=== PATIENT | female | born 1985 | race Caucasian/White ===

== ENCOUNTER 2016-09-30 15:16 | Emergency (ER) | payer OTHER ==
[2016-09-30 15:29] VITALS: BP 109/70
[2016-09-30] MEDS ORDERED: Ketorolac INJ* 60 MG/2 ML VIAL IM ONE (16:24)
[2016-09-30] MEDS ORDERED: Gabapentin CAP(*) 100 MG PO ONE (16:24)
--- NOTE | 2016-09-30 16:39 | RAD ---
Indication: Fall, back pain. 6 views of lumbar spine are reviewed. There is a transitional vertebra probably representing partial lumbarization of S1. There is fusion posteriorly of L5 and S1 with intervertebral disc spacer noted at L5-S1. No evidence of spondylolisthesis is noted. There is straightening of the normal lordosis. No fracture is noted. The pedicles appear intact. IMPRESSION: Partial lumbarization of S1 with fusion of L5-S1 with transpedicular screws. No definite fracture is identified.
--- NOTE | 2016-09-30 17:41 | ED ---
Back Pain - HPI Summary HPI Summary: Patient presents with approximately 2 weeks of back pain that began after a fall. She has a history of L5-S1 fusion, so she has tried to manage her discomfort with the methods she had used after surgery, like heat, ice, ibuprofen, Tylenol and Vicodin without relief. Her pain is in the low back with intermittent radiation down her left leg. She denies incontinence of urine or stool, no N/T or inability to ambulate. - History of Current Complaint Chief Complaint: EDBackInjuryPain Stated Complaint: LOWER AND UPPER BACK PAIN Time Seen by Provider: 09/30/16 15:49 Hx Obtained From: Patient Hx Last Menstrual Period: 11/12/15 Onset/Duration: Gradual Onset, Lasting Weeks, Still Present Onset/Duration: Started Weeks Ago, Traumatic - fall, Still Present Timing: Constant Back Pain Location: Is Discrete @ - bilateral SI joints Severity Initially: Severe Severity Currently: Severe Pain Intensity: 10 Character: Sharp, Aching Aggravating Symptom(s): Movement Alleviating Symptom(s): Nothing Associated Signs And Symptoms: Positive: Pain with Weight Bearing Related History: Previous Back Injury - Allergies/Home Medications Allergies/Adverse Reactions: Allergies Allergy/AdvReac Type Severity Reaction Status Date / Time UNKNOW MED FOR KIDNEY Allergy Severe ELAVATED Uncoded 08/11/15 13:35 INFECTION BP , SOB PMH/Surg Hx/FS Hx/Imm Hx Endocrine/Hematology History: Denies: Hx Diabetes, Hx Thyroid Disease Cardiovascular History: Denies: Hx Hypertension Respiratory History: Reports: Hx Asthma Denies: Hx Chronic Obstructive Pulmonary Disease (COPD) GI History: Denies: Hx Ulcer History: Reports: Hx Kidney Infection - 6 MONTHS AGO Musculoskeletal History: Reports: Hx Back Problems - [facility] y[facility] ago, fusion L5-S1 08/02/12 Sensory History: Denies: Hx Contacts or Glasses, Hx Hearing Aid Opthamlomology History: Denies: Hx Contacts or Glasses Neurological History: Reports: Hx Migraine - 2X/MONTH Psychiatric History: Reports: Hx Anxiety - Cancer History Cancer Type, Location and Year: cervical - Surgical History Surgery Procedure, Year, and Place: D&C [place], right inguinal hernia 07/2014. TUBAL LIGATION [facility] [place]. SPINAL FUSION L5/S1 2011 [place]. [place] BX 2007 [place] Hx Anesthesia Reactions: No Infectious Disease History: No Infectious Disease History: Denies: Hx Hepatitis, Hx Human Immunodeficiency Virus (HIV), History Other Infectious Disease, Traveled Outside the [place] in Last 30 Days - Family History Known Family History: Positive: None - Social History Occupation: Employed Full-time Lives: With Family Alcohol Use: Occasionally Substance Use Type: Reports: Marijuana Substance Use Comment - Amount & Last Used: DAILY Smoking Status (MU): Never Smoked Tobacco Have You Smoked in the Last Year: Yes Review of Systems Negative: no symptoms reported, incontinence Positive: Arthralgia, Myalgia. Negative: Edema Negative: Bruising Negative: Weakness, Paresthesia, Numbness All Other Systems Reviewed And Are Negative: Yes Physical Exam Triage Information Reviewed: Yes Vital Signs On Initial Exam: Initial Vitals Temp Pulse Resp BP Pulse Ox 98.6 F 91 20 109/70 99 09/30/16 15:25 09/30/16 15:25 09/30/16 15:25 09/30/16 15:25 09/30/16 15:25 Vital Signs Reviewed: Yes Appearance: Positive: Well-Appearing, Well-Nourished, Pain Distress Skin: Positive: Warm, Skin Color Reflects Adequate Perfusion, Dry, Soft Head/Face: Positive: Normal Head/Face Inspection Eyes: Positive: EOMI, MARINO, Conjunctiva Clear ENT: Positive: Hearing grossly normal Neck: Positive: Supple, Nontender Respiratory/Lung Sounds: Positive: Breath Sounds Present Cardiovascular: Positive: RRR Abdomen Description: Positive: Nontender, Soft Musculoskeletal: Positive: Limited @ - +SLR bilaterally, Pain @ - TTP bilateral SI joints; non-tender left buttock or posterior thigh Neurological: Positive: Sensory/Motor Intact, Alert, Oriented to Person Place, Time, Reflexes Intact, NV Bundle Intact Distally, Normal Gait Psychiatric: Positive: Affect/Mood Appropriate AVPU Assessment: Alert Diagnostics - Vital Signs Vital Signs Temp Pulse Resp BP Pulse Ox 09/30/16 15:25 98.6 F 91 20 109/70 99 - Laboratory Lab Statement: Any lab studies that have been ordered have been reviewed, and results considered in the medical decision making process. - Radiology No standard instances Xray Interpretation: No Acute Changes Radiology Interpretation Completed By: Radiologist Back Pain Course/Dx - Diagnoses Differential Diagnosis/HQI/PQRI: Positive: Aneurysm, Cauda Equina Syndrome, Herniated Disc, Osteoporosis, Septic Arthritis, Strain, Sprain Provider Diagnoses: Acute exacerbation of chronic low back pain Discharge - Discharge Plan Condition: Stable Disposition: HOME Prescriptions: Gabapentin CAP(*) [Neurontin 100 mg CAP(*)] 100 mg PO ONCE #20 cap Patient Education Materials: Low Back Strain (ED) Referrals: Mica Purdy MD [Primary Care Provider] - Additional Instructions: Please use the medication provided as prescribed. Call your PCP tomorrow to discuss pain management options and for a refill of your regular medication. Rest, use ice or heat and begin taking 800mg of ibuprofen three times daily with meals tomorrow evening, due to your Toradol injection today.
== END 2016-09-30 17:10 | disposition home or self-care (01) ==
LOC: ED 15:16
DX: M54.5 Low back pain (principal); G89.29 Other chronic pain
CPT/HCPCS: 72110; 96372; 99282; A9270-GY; J1885

== ENCOUNTER 2016-12-08 08:19 | Emergency (ER) | payer SELFPAY ==
[2016-12-08 08:37] VITALS: BP 106/73
[2016-12-08] MEDS ORDERED: BSS OPTH.SOL* BTL ONE (08:39)
[2016-12-08] MEDS ORDERED: Fluorescein Sodium TOPICAL* 1 MG TEST ONE (08:39)
[2016-12-08] MEDS ORDERED: Tetracaine 0.5% OPTH.SOL 4 ML* 1 DROP BTL RIGHT EYE ONE (08:41)
[2016-12-08] MEDS ORDERED: Fluorescein Sodium TOPICAL* 1 MG TEST OPHTHALMIC ONE (08:41)
[2016-12-08] MEDS ORDERED: Tetracaine 0.5% OPTH.SOL 15ML* BTL ONE (08:43)
[2016-12-08] MEDS ORDERED: Tetan/Diph/Pertus SYR(Tdap)* 0.5 ML SYR(BOOSTRIX) use SYR IM ONE (08:51)
[2016-12-08] MEDS ORDERED: Polymyx/Trimethoprim OPTH* 10 ML BTL RIGHT EYE ONE (08:52)
--- NOTE | 2016-12-08 08:53 | UC ---
Jasen Cheng SooYoung, scribed for Diane Valentin MD on 12/08/16 at 0836 . Eye Complaint HPI - HPI Summary HPI Summary: A 31 y/o F presents to [facility] [place] with c/o R eye pain onset two days ago. Associated sx : eye tearing. Mild photophobia. Burning pain. Pt was cutting wood two days ago and a "chunk of wood" flew into her R eye. She flushed it with water and Visine, but still feels that something is in her eye. She's unsure if it's a foreign body or if she scratched her eye. Pt wears glasses, no contacts.. She states feeling healthy otherwise. Unsure of her last tetanus. Denies daily medications. PSHx: Spinal fusion. Non-smoker, occasional drinker, occasional marijuana use. Patients medication reviewed this visit. - History of Current Complaint Chief Complaint: UCEye Stated Complaint: EYE COMPLAINT Time Seen by Provider: 12/08/16 08:32 Hx Obtained From: Patient Hx Last Menstrual Period: 12/01/16 Onset/Duration: Sudden Onset, Lasting Days - onset 2 days ago, Still Present Timing: Constant Severity Currently: Mild Pain Intensity: 3 Pain Scale Used: 0-10 Numeric Location of Injury: Globe Character: Foreign Body Sensation Aggravating Factor(s): Light, Blinking Alleviating Factor(s): Eye Drops - Visine Associated Signs And Symptoms: Positive: Drainage (Clear) - Allergies/Home Medications Allergies/Adverse Reactions: Allergies Allergy/AdvReac Type Severity Reaction Status Date / Time UNKNOW MED FOR KIDNEY AdvReac Severe ELAVATED BP Uncoded 12/08/16 08:33 INFECTION Home Medications: Home Medications NK [No Home Medications Reported] 12/08/16 [History Confirmed 12/08/16] PMH/Surg Hx/FS Hx/Imm Hx Previously Healthy: No Endocrine History Of: Denies: Diabetes, Thyroid Disease, Hyperthyroidism, Hypothyroidism, Dyslipidemia Cardiovascular History Of: Denies: Cardiac Disorders, Hypertension, Pacemaker/ICD, Myocardial Infarction , Congestive Heart Failure, Atrial Fibrillation, Deep Vein Thrombosis, Bleeding Disorders Respiratory History Of: Reports: Asthma, Bronchitis - 3 WEEKS AGO Denies: COPD GI/ History Of: Denies: Gastroesophageal Reflux, Ulcer, Gastrointestinal Bleed, Gall Bladder Disease, Kidney Stones, Diverticulitis, Renal Disease, Urosepsis Neurological History Of: Reports: Migraine - 2X/MONTH Denies: TIA, CVA, Dementia, Seizures Psychological History Of: Reports: Anxiety Denies: Depression, Bipolar Disorder, Schizophrenia, Post Traumatic Stress Disorder Cancer History Of: Denies: Lung Cancer, Colorectal Cancer, Breast Cancer, Prostate Cancer, Cervical Cancer Other History Of: Negative For: HIV, Hepatitis B, Hepatitis C, Anticoagulant Therapy - Surgical History Surgical History: Yes Surgery Procedure, Year, and Place: D&C [place], right inguinal hernia 07/2014. TUBAL LIGATION [facility] [place]. SPINAL FUSION L5/S1 2011 [place]. [place] 2007 [place] - Family History Known Family History: Positive: Cardiac Disease, Hypertension Negative: Diabetes - Social History Occupation: Employed Full-time Lives: Alone Alcohol Use: Occasionally Substance Use Type: Marijuana Substance Use Comment - Amount & Last Used: DAILY Smoking Status (MU): Never Smoked Tobacco Have You Smoked in the Last Year: Yes - Immunization History Most Recent Influenza Vaccination: no Review of Systems Constitutional: Negative Skin: Negative Eyes: Drainage - clear, Photophobia - mild, Other - R eye pain ENT: Negative Respiratory: Negative Cardiovascular: Negative Gastrointestinal: Negative Genitourinary: Negative Motor: Negative Neurovascular: Negative Musculoskeletal: Negative Neurological: Negative Psychological: Negative All Other Systems Reviewed And Are Negative: Yes Physical Exam Triage Information Reviewed: Yes Vital Signs: Initial Vital Signs Temp 98.9 F 12/08/16 08:23 Pulse 73 12/08/16 08:23 Resp 14 12/08/16 08:23 BP 106/73 12/08/16 08:23 Pulse Ox 98 12/08/16 08:23 Vital Signs Reviewed: Yes Eyes: Positive: Other: - right eye - injected MARINO with mild photophobia EOM intact and full fluorescene: pt with small area uptake lateral aspect of iris right eye no foreign body lids everted without f/b ENT: Positive: Hearing grossly normal Neck exam: Normal Respiratory Exam: Normal Respiratory: Positive: Chest non-tender, Lungs clear, Normal breath sounds Cardiovascular Exam: Normal Cardiovascular: Positive: RRR, No Murmur Abdomen Description: Positive: Nontender, No Organomegaly, Soft Bowel Sounds: Positive: Present Musculoskeletal Exam: Normal Neurological Exam: Normal Psychological Exam: Normal Skin Exam: Normal Eye Complaint Course/Dx - Course Course Of Treatment: pt with corneal abraison with fluorescene uptake right eye. will start abx. will update tdap - Differential Dx/Diagnosis Provider Diagnoses: corneal abrasion Discharge - Discharge Plan Condition: Stable Disposition: HOME Patient Education Materials: Diphtheria/Pertussis/Tetanus Vaccine (By injection ), Corneal Abrasion (ED) Referrals: Mica Purdy MD [Primary Care Provider] - Additional Instructions: You received a tetanus booster today- your arm will likely be achy tomorrow - this is normal. Okay to alternate ibuprofen (advil, motrin) and tylenol every 3 hours as needed Apply antibiotic to your right eye - 1 drop, 3 times a day for 5 days Avoid rubbing and touching your eye You may find wearing sunglasses helps with light sensitivity Contact your doctor to schedule a follow-up appointment. Contact your doctor or return with questions or concerns The documentation as recorded by the Jasen krishnamurthy SooYoung accurately reflects the service I personally performed and the decisions made by , Diane Valentin MD.
== END 2016-12-08 09:10 | disposition home or self-care (01) ==
LOC: UCEAST 08:19
DX: S05.01XA Injury of conjunctiva and corneal abrasion without foreign body, right eye, initial encounter (principal); X58.XXXA Exposure to other specified factors, initial encounter; Y93.89 Activity, other specified; Y92.9 Unspecified place or not applicable; Z23 Encounter for immunization; J45.909 Unspecified asthma, uncomplicated; G43.909 Migraine, unspecified, not intractable, without status migrainosus; F41.9 Anxiety disorder, unspecified; F12.90 Cannabis use, unspecified, uncomplicated
CPT/HCPCS: 90471; 90715; 99212; A9270-GY; G0463

== ENCOUNTER 2017-04-29 07:48 | Emergency (ER) | payer SELFPAY ==
[2017-04-29 08:21] VITALS: BP 95/68
--- NOTE | 2017-04-29 09:03 | RAD ---
Indication: Pain and swelling the LEFT lower leg post fall. Comparison: No relevant prior exams available on the [facility] [place] PACS for comparison. Technique: AP and lateral views LEFT lower leg. REPORT AND IMPRESSION: Mild anterior soft tissue swelling at the level of the mid diaphysis. Negative for fracture or malalignment.
--- NOTE | 2017-04-29 09:14 | UC ---
Joshua Cheng Rebecca, scribed for Tiffany Nazario MD on 04/29/17 at 0827 . Lower Extremity/Ankle HPI - HPI Summary HPI Summary: Pt is a 32 y/o F who presents to [facility] c/o LLE pain. Last night the pt tripped over a brick that was sticking out of a walkway, then her "whole leg twisted" and she fell, scraping her leg on the bricks. Pt states that pain, bruising and swelling began immediately after the fall. Pain is from below the knee and down , worst on the caro, is currently moderate, ranked 6/10 and characterized as throbbing. Sx aggravated by the vibrations from her truck, alleviated by ice. Denies hip, knee and calf pain. 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 - History of Current Complaint Chief Complaint: UCLowerExtremity Stated Complaint: LEG INJURY Time Seen by Provider: 04/29/17 08:17 Hx Obtained From: Patient Hx Last Menstrual Period: 04/13/17 Onset/Duration: Lasting Days - Yesterday, Still Present Severity Currently: Moderate Pain Intensity: 6 Pain Scale Used: 0-10 Numeric Aggravating Factor(s): Other - Vibrations of her truck Alleviating Factor(s): Ice Able to Bear Weight: Yes - Allergies/Home Medications Allergies/Adverse Reactions: Allergies Allergy/AdvReac Type Severity Reaction Status Date / Time UNKNOW MED FOR KIDNEY AdvReac Severe ELAVATED BP Uncoded 04/29/17 08:16 INFECTION PMH/Surg Hx/FS Hx/Imm Hx - Additional Past Medical History Additional PMH: NEGATIVE PMHx: DM, HTN, COPD Respiratory History: Asthma, Other Other Respiratory History: Seasonal allergies Neurological History: Other Other Neurological History: Nerve damage on the L side Other History Of: Negative For: HIV, Hepatitis B, Hepatitis C, Anticoagulant Therapy - Surgical History Surgical History: Yes Surgery Procedure, Year, and Place: D&C [place]. right inguinal hernia 2014. TUBAL LIGATION [facility] [place] 2008. SPINAL FUSION L5/S1 2011 [place] - Family History Known Family History: Positive: Cardiac Disease, Hypertension, Diabetes, Respiratory Disease - COPD, Other - CA - mouth, throat and lung - Social History Occupation: Employed Full-time Lives: With Family Alcohol Use: Occasionally Substance Use Type: None Substance Use Comment - Amount & Last Used: DAILY Smoking Status (MU): Never Smoked Tobacco Have You Smoked in the Last Year: Yes - Immunization History Most Recent Influenza Vaccination: no Review of Systems Constitutional: Negative Skin: Bruising, Other - LLE caro swelling Eyes: Negative ENT: Negative Respiratory: Negative Cardiovascular: Negative Gastrointestinal: Negative Genitourinary: Negative Motor: Negative Neurovascular: Negative Musculoskeletal: Other: - LLE pain from below the knee and down; NEGATIVE: hip, knee and calf pain Neurological: Other - decreased sensation left leg post L5-S1 fusion and preceding injury Psychological: Negative All Other Systems Reviewed And Are Negative: Yes Physical Exam Triage Information Reviewed: Yes Appearance: Well-Appearing, Pain Distress - mild Vital Signs: Initial Vital Signs Temp 97.8 F 04/29/17 08:16 Pulse 80 04/29/17 08:16 Resp 16 04/29/17 08:16 BP 95/68 04/29/17 08:16 Pulse Ox 99 04/29/17 08:16 ENT: Positive: Normal ENT inspection Neck exam: Normal Respiratory: Positive: Lungs clear, Normal breath sounds Cardiovascular: Positive: RRR, No Murmur Musculoskeletal Exam: Other - antalgic gait left lower leg with 14 x 12 cm hematoma over mid tibial area Left knee without swelling, non-tender patell, full rom. Musculoskeletal: Positive: Other: - full rom in left ankle. Neurological Exam: Normal Neurological: Positive: Alert, Muscle Tone Normal Psychological Exam: Normal Skin Exam: Other - hematoma left leg as above Diagnostics - Radiology L Lower Leg XR Xray Interpretation: No Acute Changes - Mild anterior soft tissue swelling at the level of the mid diaphysis. Negative for fracture or malalignment. Radiology Interpretation Completed By: ED Physician - No radiographic findings consistent with fracture., Radiologist Re-Evaluation - Re-Evaluation First Eval Re-Evaluation Time: 09:09 Comment: Discussed radiologist interpretation of XR. Lower Extremity Course/Dx - Course Course Of Treatment: ED physician interpreattion of L lower leg XR is that there is no evidence for fracture. Pt medications reviewed this visit. - Differential Dx/Diagnosis Differential Diagnosis/HQI/PQRI: Compartment Syndrome, Contusion, Fracture ( Closed) Provider Diagnoses: contusion/hematoma left leg. Discharge - Discharge Plan Condition: Stable Disposition: HOME Patient Education Materials: Contusion in Adults (ED) Referrals: Mica Purdy MD [Primary Care Provider] - Additional Instructions: You have a hematoma and a bone bruise. This can be painful for 3 to 4 weeks, but there is not a fracture in the bone. Continue regular use of ice to control swelling and pain, and you can use ibuprofen as needed for control of pain. Anticipate that the bruising will track to the foot over the next week. Follow up if there is increased pain and swelling. The documentation as recorded by the Joshua krishnamurthy Rebecca accurately reflects the service I personally performed and the decisions made by , Tiffany Nazario MD.
== END 2017-04-29 09:25 | disposition home or self-care (01) ==
LOC: UCEAST 07:48
DX: S80.12XA Contusion of left lower leg, initial encounter (principal); W01.0XXA Fall on same level from slipping, tripping and stumbling without subsequent striking against object, initial encounter; Y92.9 Unspecified place or not applicable; J45.909 Unspecified asthma, uncomplicated
CPT/HCPCS: 99211; G0463

== ENCOUNTER 2017-06-23 13:57 | Emergency (ER) | payer SELFPAY ==
[2017-06-23 14:21] VITALS: BP 107/66
[2017-06-23] MEDS ORDERED: Al Hydrox/Mg Hydrox/Simet LIQ* 30 ML UDC PO ONE (14:47)
[2017-06-23] MEDS ORDERED: Acetaminophen TAB* 325 MG PO ONE (14:51)
--- NOTE | 2017-06-23 14:52 | UC ---
Abdominal Pain Female HPI - HPI Summary HPI Summary: 32 year old female with no significant pmhx here with complaint of sore throat X4 days along with abdominal painX2 days. Reports she started vomiting yesterday with generalized abdominal pain along - History of Current Complaint Chief Complaint: UCAbdominalPain Stated Complaint: VOMITING SORE THROAT CHILLS PAIN ON SIDE Time Seen by Provider: 06/23/17 14:37 Hx Last Menstrual Period: 06/04/17 Onset/Duration: Gradual Onset Severity Initially: Mild Location: Discrete At: RLQ Radiates to: Other - right upper quadrant Character: Aching Aggravating Factor(s): Movement Alleviating Factor(s): Nothing Associated Signs and Symptoms: Positive: Fever, Decreased Appetite, Nausea, Vomiting. Negative: Cough, Blood in Stool, Urinary Symptoms, Vaginal Bleeding, Vaginal Discharge Allergies/Adverse Reactions: Allergies Allergy/AdvReac Type Severity Reaction Status Date / Time UNKNOW MED FOR KIDNEY AdvReac Severe ELAVATED BP Uncoded 04/29/17 08:16 INFECTION PMH/Surg Hx/FS Hx/Imm Hx Other History Of: Negative For: HIV, Hepatitis B, Hepatitis C, Anticoagulant Therapy - Surgical History Surgical History: Yes Surgery Procedure, Year, and Place: D&C [place]. right inguinal hernia 2014. TUBAL LIGATION [facility] [place] 2008. SPINAL FUSION L5/S1 2011 [place] - Family History Known Family History: Positive: None, Cardiac Disease, Hypertension, Diabetes, Respiratory Disease - COPD, Other - [place] - mouth, throat and lung - Social History Alcohol Use: Occasionally Substance Use Type: None Substance Use Comment - Amount & Last Used: DAILY Smoking Status (MU): Former Smoker Have You Smoked in the Last Year: Yes - Immunization History Most Recent Influenza Vaccination: no Review of Systems Constitutional: Fever, Chills Gastrointestinal: Abdominal Pain, Vomiting, Nausea Genitourinary: Negative All Other Systems Reviewed And Are Negative: Yes Physical Exam Triage Information Reviewed: Yes Appearance: Well-Appearing, No Pain Distress Vital Signs: Initial Vital Signs Temp 36.8 C 06/23/17 14:16 Pulse 94 06/23/17 14:16 Resp 16 06/23/17 14:16 BP 107/66 06/23/17 14:16 Pulse Ox 100 06/23/17 14:16 Respiratory: Positive: Chest non-tender, Lungs clear, Normal breath sounds, No respiratory distress Cardiovascular: Positive: RRR, No Murmur Abdomen Description: Positive: Guarding - RLQ tenderness with guarding Abd Pain Female Course/Dx - Course Course Of Treatment: 32 year old female with signs and symptoms c/w appendicitis. Since patient's cr can not be obtained here, will transfer to the ED for CTAP. Urine here is negative. She had tubal ligation, so concern for ectopic is unlikelly. - Differential Dx/Diagnosis Differential Diagnosis: Appendicitis, Ovarian Cyst, Urinary Tract Infection Provider Diagnoses: RLQ abdominal pain Discharge - Discharge Plan Condition: Good Disposition: HOME Referrals: No Primary Care Phys,NOPCP [Primary Care Provider] - Additional Instructions: Go to the ER immediately
== END 2017-06-23 15:10 | disposition home or self-care (01) ==
LOC: UCEAST 13:57
DX: R10.31 Right lower quadrant pain (principal); Z87.891 Personal history of nicotine dependence; Z88.8 Allergy status to other drugs, medicaments and biological substances
CPT/HCPCS: 81003; 87077; 87086; 87186; 99212; A9270-GY; G0463

== ENCOUNTER 2017-06-23 15:31 | Emergency (ER) | payer SELFPAY ==
[2017-06-23] MEDS ORDERED: Ondansetron INJ* 2 MG/ML VIAL IV ONE (16:13)
[2017-06-23] MEDS ORDERED: Morphine INJ* 4 MG/ML 1 ML CARPUJECT IV ONE (16:13)
[2017-06-23] MEDS: NS 0.9% 1000 ML* 2,000 ML IV ONE (16:36)
[2017-06-23 16:48] LABS: Hematocrit 40 % (35-47); Hemoglobin 13.5 g/dl (12.0-16.0); Mean Corpuscular HGB Conc 34 g/dl (31-36); Mean Corpuscular Hemoglobin 29 pg (27-31); Mean Corpuscular Volume 87 fL (80-97); Mean Platelet Volume 9 um3 (7.4-10.4); Red Blood Count 4.63 10^6/ul (4.0-5.4); Red Cell Distribution Width 13 % (10.5-15); White Blood Count 8.6 10^3/ul (3.5-10.8)
[2017-06-23 17:04] LABS: ALT 9 U/L (7-52); AST 12 U/L (13-39); Albumin 4.3 g/dL (3.2-5.2); Alkaline Phosphatase 42 U/L (34-104); Anion Gap 5 mmol/L (2-11); BUN/Creatinine Ratio 15.9 (8-20); Blood Urea Nitrogen 14 mg/dL (6-24); C Reactive Protein 1.82 mg/L (< 5.00); CO2 Carbon Dioxide 27 mmol/L (22-32); Calcium 9.7 mg/dL (8.6-10.3); Chloride 104 mmol/L (101-111); EGFR Non-African American 75.4 (>60); Globulin 2.8 g/dL (2-4); Glucose 85 mg/dL (70-100); Lipase 13 U/L (11.0-82.0); Potassium 3.8 mmol/L (3.5-5.0); Sodium 136 mmol/L (133-145); Total Protein 7.1 g/dL (6.4-8.9)
[2017-06-23] MEDS ORDERED: Iohexol 300* (CONTRAST) 10 ML SDV IV ONE (17:08)
--- NOTE | 2017-06-23 18:07 | RAD ---
HISTORY: Right lower quadrant pain COMPARISONS: None TECHNIQUE: Multiple transverse and longitudinal ultrasound images were obtained of the right lower quadrant using grayscale and color Doppler imaging. FINDINGS: The appendix is not visualized. There is no free or loculated fluid within the right lower quadrant. IMPRESSION: THE APPENDIX IS NOT VISUALIZED. THERE IS NO FREE OR LOCULATED FLUID WITHIN THE RIGHT LOWER QUADRANT.
--- NOTE | 2017-06-23 18:09 | RAD ---
HISTORY: Right lower quadrant pain COMPARISONS: January 19, 2012 TECHNIQUE: Multiple transverse and longitudinal ultrasound images were obtained of the pelvis using grayscale, color Doppler, and spectral Doppler imaging using the endovaginal transducer. FINDINGS: UTERUS: The uterus measures 7.7 x 4.5 x 5.1 cm. The uterus is normal in shape, size, contour, and echotexture. ENDOMETRIUM: The endometrial stripe is smooth. The endometrium measures 1 cm in thickness. CUL-DE-SAC: There is no free fluid within the cul-de-sac. RIGHT OVARY: The right ovary measures 4.2 x 2.2 x 3.2 cm. There is an involuting cyst of the right ovary measuring 1.8 x 1.8 x 2 cm in size. There is a small amount of fluid adjacent to the right ovary. This may be physiologic within a reproductive age female. Normal arterial and venous waveforms are identifiable within the ovary on spectral Doppler imaging. LEFT OVARY: The left ovary measures 3.2 x 1.7 x 1.8 cm. Multiple follicles are noted. Normal arterial and venous waveforms are identifiable within the ovary on spectral Doppler imaging. BLADDER: The bladder is not well visualized. OTHER: None IMPRESSION: INVOLUTING CYST OF THE RIGHT OVARY. NO SONOGRAPHIC FEATURES OF TORSION. PLEASE NOTE THAT PARTIAL OR INTERMITTENT TORSION MAY BE SONOGRAPHICALLY NORMAL.
--- NOTE | 2017-06-23 18:46 | RAD ---
CLINICAL HISTORY: Right lower quadrant pain COMPARISON: Ultrasound dated June 23, 2017, CT dated February 12, 2011 TECHNIQUE: Multiple contiguous axial CT scans were obtained of the abdomen and pelvis after the administration of intravenous contrast. Coronal and sagittal multiplanar reformations are submitted for review. Oral contrast was administered. Delayed images were obtained through the abdomen and pelvis. FINDINGS: LUNG BASES: The lung bases are clear. LIVER: The liver is diffusely low in attenuation compared to the spleen. There are no focal hepatic parenchymal masses. The liver is mildly enlarged measuring 20 cm in long axis. BILE DUCTS: There is no intrahepatic or extrahepatic biliary dilatation. GALLBLADDER: A gallstone is noted. There is no pericholecystic infiltrate change. PANCREAS: The pancreas is normal, without mass or ductal dilatation. SPLEEN: Normal in size and appearance. UPPER GI TRACT: Evaluation of the gastrointestinal tract is limited by incomplete gastric distention. The upper GI tract is unremarkable. SMALL BOWEL AND MESENTERY: The small bowel is normal in contour, course, and caliber. There is no obstruction or dilatation. COLON: The colon is normal in contour, course, caliber. There is no pericolonic inflammatory change. There is a tubular, vermiform, hollow viscus that is blind ending, and originates from the cecum, consistent with a normal appendix. There is no periappendiceal inflammatory change. This is best seen on axial images 52 through 59 ADRENALS: Normal bilaterally. KIDNEYS: The kidneys are normal in shape, size, contour, and axis. There is no hydronephrosis or nephrolithiasis. BLADDER: The bladder is smooth in contour. PELVIC ORGANS: Again noted is an involuting cyst of the right ovary corresponding to the sonographic findings. AORTA: The aorta is normal. IVC: Unremarkable LYMPH NODES: There is no lymphadenopathy by size criteria. ABDOMINAL WALL: There is no evidence for abdominal wall hernia. BONES AND SOFT TISSUES: The patient is status post spinal fusion at L5-S1. OTHER: None IMPRESSION: 1. NORMAL APPENDIX. 2. HEPATOMEGALY WITH FATTY INFILTRATION OF LIVER. 3. CHOLELITHIASIS
[2017-06-23 19:03] VITALS: BP 108/75
--- NOTE | 2017-06-23 19:15 | ED ---
Brennen Cheng Benjamin, scribed for Manuel Granda MD on 06/23/17 at 1616 . Abdominal Pain/Female - HPI Summary HPI Summary: 32yo female comes from c/o RLQ pain since yesterday. Pt states pain has gotten worse today. Pain is worse with movement and walking, and lying flat with knees up alleviates the pain somewhat. Pt also has been sick for 4 days with sore throat, has been vomiting multiple times and getting cold chills for 2 days. No urinary symptoms but less output lately. Denies vaginal discharge or diarrhea. LMP was 3 weeks ago. PMHx of L5-S1 spinal fusion, tubal ligation ( 2009), right inguinal hernia (2014) - History of Current Complaint Chief Complaint: EDAbdPain Stated Complaint: ABP PAIN Time Seen by Provider: 06/23/17 15:51 Hx Obtained From: Patient Hx Last Menstrual Period: 06/04/17 Onset/Duration: Sudden Onset, Lasting Days - 1 day, Still Present Timing: Constant Severity Initially: Severe Severity Currently: Severe Pain Intensity: 9 Pain Scale Used: 0-10 Numeric Location: Discrete At: RLQ Radiates: No Aggravating Factor(s): Movement Alleviating Factor(s): Position - lying flat with knees up Associated Signs and Symptoms: Positive: Nausea, Vomiting. Negative: Fever, Blood in Stool, Urinary Symptoms, Vaginal Bleeding, Vaginal Discharge, Diarrhea Allergies/Adverse Reactions: Allergies Allergy/AdvReac Type Severity Reaction Status Date / Time UNKNOW MED FOR KIDNEY AdvReac Severe ELAVATED BP Uncoded 04/29/17 08:16 INFECTION PMH/Surg Hx/FS Hx/Imm Hx Endocrine/Hematology History: Denies: Hx Anticoagulant Therapy, Hx Diabetes, Hx Thyroid Disease Cardiovascular History: Denies: Hx Congestive Heart Failure, Hx Deep Vein Thrombosis, Hx Hypertension , Hx Myocardial Infarction, Hx Pacemaker/ICD Respiratory History: Reports: Hx Asthma Denies: Hx Chronic Obstructive Pulmonary Disease (COPD), Hx Lung Cancer GI History: Denies: Hx Gall Bladder Disease, Hx Gastrointestinal Bleed, Hx Ulcer, Hx Urosepsis History: Reports: Hx Kidney Infection - 6 MONTHS AGO Denies: Hx Kidney Stones, Hx Renal Disease Musculoskeletal History: Reports: Hx Back Problems - from [facility] 3 yrs ago, fusion L5-S1 08/02/12 Sensory History: Denies: Hx Contacts or Glasses, Hx Hearing Aid Opthamlomology History: Denies: Hx Contacts or Glasses Neurological History: Reports: Hx Migraine - 2X/MONTH Denies: Hx Dementia, Hx Seizures, Hx Transient Ischemic Attacks (TIA) Psychiatric History: Reports: Hx Anxiety Denies: Hx Depression, Hx Panic Disorder, Hx Schizophrenia, Hx Bipolar Disorder - Cancer History Cancer Type, Location and Year: 2007 cervical - Surgical History Surgery Procedure, Year, and Place: [facility]. right inguinal hernia 2014. [place] [facility] [place] SPINAL FUSION L5/S1 2011 [place] [facility] Hx Anesthesia Reactions: No Infectious Disease History: Yes Infectious Disease History: Denies: Hx Clostridium Difficile, Hx Hepatitis, Hx Human Immunodeficiency Virus (HIV), Hx of Known/Suspected MRSA, Hx Shingles, Hx Tuberculosis, Hx Known/ Suspected VRE, Hx Known/Suspected VRSA, History Other Infectious Disease, Traveled Outside the in Last 30 Days - Family History Known Family History: Positive: Cardiac Disease, Hypertension, Diabetes, Respiratory Disease - COPD, Other - CA - mouth, throat and lung - Social History Alcohol Use: Occasionally Substance Use Type: Reports: None Substance Use Comment - Amount & Last Used: DAILY Smoking Status (MU): Former Smoker Have You Smoked in the Last Year: Yes Review of Systems Positive: Chills. Negative: Fever Eyes: Negative ENT: Negative Cardiovascular: Negative Respiratory: Negative Positive: Abdominal Pain - RLQ , Vomiting, Nausea. Negative: Diarrhea Genitourinary: Negative Positive: no symptoms reported Musculoskeletal: Negative Skin: Negative Neurological: Negative Psychological: Normal All Other Systems Reviewed And Are Negative: Yes Physical Exam - Summary Physical Exam Summary: General: mild to moderate pain distress Skin: warm, color reflects adequate perfusion, dry Head: normal Eyes: EOMI, MARINO ENT: 2+ eythematous tonsils Neck: supple, nontender Respiratory: CTA, breath sounds present Cardiovascular: RRR Abdomen: soft. RLQ tenderness Bowel: hypoactive bowel sounds Musculoskeletal: normal, strength/ROM intact Neurological: normal, sensory/motor intact, A&O x3 Psychological: affect/mood appropriate Triage Information Reviewed: Yes Vital Signs On Initial Exam: Initial Vitals Temp Pulse Resp BP Pulse Ox 98.5 F 88 18 110/73 99 06/23/17 15:35 06/23/17 15:35 06/23/17 15:35 06/23/17 15:35 06/23/17 15:35 Vital Signs Reviewed: Yes Diagnostics - Vital Signs Vital Signs Temp Pulse Resp BP Pulse Ox 06/23/17 15:35 98.5 F 88 18 110/73 99 - Laboratory Lab Results: Lab Results 06/23/17 06/23/17 06/23/17 Range/Units 16:35 16:35 16:35 WBC 8.6 (3.5-10.8) 10^3/ul RBC 4.63 (4.0-5.4) 10^6/ul Hgb 13.5 (12.0-16.0) g/dl Hct 40 (35-47) % MCV 87 (80-97) fL MCH 29 (27-31) pg MCHC 34 (31-36) g/dl RDW 13 (10.5-15) % Plt Count 222 (150-450) 10^3/ul MPV 9 (7.4-10.4) um3 Neut % (Auto) 68.1 (38-83) % Lymph % (Auto) 20.3 L (25-47) % [place] % (Auto) 9.1 H (1-9) % Eos % (Auto) 1.8 (0-6) % Baso % (Auto) 0.7 (0-2) % Absolute Neuts (auto) 5.8 (1.5-7.7) 10^3/ul Absolute Lymphs (auto) 1.7 (1.0-4.8) 10^3/ul Absolute Monos (auto) 0.8 (0-0.8) 10^3/ul Absolute Eos (auto) 0.2 (0-0.6) 10^3/ul Absolute Basos (auto) 0.1 (0-0.2) 10^3/ul Absolute Nucleated RBC 0.01 10^3/ul Nucleated RBC % 0.1 INR (Anticoag Therapy) 0.94 (0.77-1.02) Sodium 136 (133-145) mmol/L Potassium 3.8 (3.5-5.0) mmol/L Chloride 104 (101-111) mmol/L Carbon Dioxide 27 (22-32) mmol/L Anion Gap 5 (2-11) mmol/L BUN 14 (6-24) mg/dL Creatinine 0.88 (0.51-0.95) mg/dL Est GFR ( Amer) 97.0 (>60) Est GFR (Non-Af Amer) 75.4 (>60) BUN/Creatinine Ratio 15.9 (8-20) Glucose 85 (70-100) mg/dL Lactic Acid (0.5-2.0) mmol/L Calcium 9.7 (8.6-10.3) mg/dL Total Bilirubin 0.30 (0.2-1.0) mg/dL AST 12 L (13-39) U/L ALT 9 (7-52) U/L Alkaline Phosphatase 42 (34-104) U/L C-Reactive Protein 1.82 (< 5.00) mg/L Total Protein 7.1 (6.4-8.9) g/dL Albumin 4.3 (3.2-5.2) g/dL Globulin 2.8 (2-4) g/dL Albumin/Globulin Ratio 1.5 (1-3) Lipase 13 (11.0-82.0) U/L Beta HCG, Quant < 0.60 mIU/mL 06/23/ Range/Units 16:35 WBC (3.5-10.8) 10^3/ul RBC (4.0-5.4) 10^6/ul Hgb (12.0-16.0) g/dl Hct (35-47) % MCV (80-97) fL MCH (27-31) pg MCHC (31-36) g/dl RDW (10.5-15) % Plt Count (150-450) 10^3/ul MPV (7.4-10.4) um3 Neut % (Auto) (38-83) % Lymph % (Auto) (25-47) % [place] % (Auto) (1-9) % Eos % (Auto) (0-6) % Baso % (Auto) (0-2) % Absolute Neuts (auto) (1.5-7.7) 10^3/ul Absolute Lymphs (auto) (1.0-4.8) 10^3/ul Absolute Monos (auto) (0-0.8) 10^3/ul Absolute Eos (auto) (0-0.6) 10^3/ul Absolute Basos (auto) (0-0.2) 10^3/ul Absolute Nucleated RBC 10^3/ul Nucleated RBC % INR (Anticoag Therapy) (0.77-1.02) Sodium (133-145) mmol/L Potassium (3.5-5.0) mmol/L Chloride (101-111) mmol/L Carbon Dioxide (22-32) mmol/L Anion Gap (2-11) mmol/L BUN (6-24) mg/dL Creatinine (0.51-0.95) mg/dL Est GFR ( Amer) (>60) Est GFR (Non-Af Amer) (>60) BUN/Creatinine Ratio (8-20) Glucose (70-100) mg/dL Lactic Acid 0.6 (0.5-2.0) mmol/L Calcium (8.6-10.3) mg/dL Total Bilirubin (0.2-1.0) mg/dL AST (13-39) U/L ALT (7-52) U/L Alkaline Phosphatase (34-104) U/L C-Reactive Protein (< 5.00) mg/L Total Protein (6.4-8.9) g/dL Albumin (3.2-5.2) g/dL Globulin (2-4) g/dL Albumin/Globulin Ratio (1-3) Lipase (11.0-82.0) U/L Beta HCG, Quant mIU/mL Result Diagrams: 06/23/17 16:35 06/23/17 16:35 Lab Statement: Any lab studies that have been ordered have been reviewed, and results considered in the medical decision making process. - Additional Comments Diagnostic Additional Comments: Transvaginal US IMPRESSION: INVOLUTING CYST OF THE RIGHT OVARY. NO SONOGRAPHIC FEATURES OF TORSION. PLEASE NOTE THAT PARTIAL OR INTERMITTENT TORSION MAY BE SONOGRAPHICALLY NORMAL. Dr. Granda has reviewed this radiology report and agrees. Appendix US IMPRESSION: THE APPENDIX IS NOT VISUALIZED. THERE IS NO FREE OR LOCULATED FLUID WITHIN THE RIGHT LOWER QUADRANT. Dr. Granda has reviewed this radiology report and agrees. Abdominal Pain Fem Course/Dx - Course Course Of Treatment: BP noted. Allergies noted. Medications reviewed. Discussed results with patient. No fever, nl appendix on CT, no torsion. F/U PMD; return if worse. - Diagnoses Provider Diagnoses: Abdominal pain, Ovarian cyst, Nausea & vomiting, Gallstones Discharge - Discharge Plan Condition: Stable Disposition: HOME Prescriptions: HYDROcodone/ACETAMIN 5-325 MG* [[place] 5-325 TAB*] 1 tab PO Q4H PRN #20 tab MDD 6 PRN Reason: Pain Promethazine TAB* [Phenergan TAB*] 25 mg PO Q6H PRN #15 tab PRN Reason: Nausea Patient Education Materials: Ovarian Cyst (ED), Abdominal Pain (ED), Gallstones (ED), Acute Nausea and Vomiting (ED) Referrals: No Primary Care Phys,NOPCP [Primary Care Provider] - [facility] [place] [facility] [place]] Additional Instructions: FOLLOW UP WITH YOUR DOCTOR. RETURN TO THE EMERGENCY DEPARTMENT FOR ANY WORSENING OF YOUR CONDITION OR QUESTIONS OR CONCERNS. The documentation as recorded by the Brennen krishnamurthy Benjamin accurately reflects the service I personally performed and the decisions made by me, Manuel Granda MD.
== END 2017-06-23 19:31 | disposition home or self-care (01) ==
LOC: ED 15:31
DX: K80.80 Other cholelithiasis without obstruction (principal); R10.31 Right lower quadrant pain; N83.201 Unspecified ovarian cyst, right side; R11.2 Nausea with vomiting, unspecified; Z87.891 Personal history of nicotine dependence
CPT/HCPCS: 36415; 74177; 76705; 76830; 80053; 83605; 83690; 84702; 85025; 85610; 86140; 99283; J2270; J2405; Q9967

== ENCOUNTER 2017-06-25 11:18 | Emergency (ER) | payer SELFPAY ==
[2017-06-25] MEDS ORDERED: Morphine INJ* 4 MG/ML 1 ML CARPUJECT IV ONE (12:22)
[2017-06-25] MEDS ORDERED: Ondansetron INJ* 2 MG/ML VIAL IV ONE ×2 (12:23→14:20)
[2017-06-25 12:41] LABS: Hematocrit 41 % (35-47); Hemoglobin 13.5 g/dl (12.0-16.0); Mean Corpuscular HGB Conc 33 g/dl (31-36); Mean Corpuscular Hemoglobin 29 pg (27-31); Mean Corpuscular Volume 88 fL (80-97); Mean Platelet Volume 9 um3 (7.4-10.4); Red Blood Count 4.71 10^6/ul (4.0-5.4); Red Cell Distribution Width 13 % (10.5-15); White Blood Count 6.7 10^3/ul (3.5-10.8)
[2017-06-25] MEDS: NS 0.9% 1000 ML* 2,000 ML IV ONE ×2 (12:52→13:00)
--- NOTE | 2017-06-25 12:55 | RAD ---
Indication: RIGHT upper quadrant abdominal pain, vomiting. Gallstone noted on CT June 23, 2017. Comparison: June 23, 2017 CT. Technique: RIGHT upper quadrant ultrasound. Report: Appropriate direction flow documented in the portal and hepatic veins. 17.3 cm liver is mildly increased in echogenicity. Negative for focal hepatic lesions. Negative for intrahepatic biliary dilatation. 3.3 mm common bile duct. Adequately distended gallbladder with normal range 2.8 mm wall is remarkable for a nonmobile 4 mm maximum dimension nonshadowing polypoid structure along the posterior wall. Negative for pericholecystic fluid. Negative for sonographic Cross's sign. The pancreatic tail is partially obscured due to bowel gas with the visualized pancreas unremarkable. Negative for ascites. 10.0 x 4.9 x 5.2 cm RIGHT kidney is unremarkable. IMPRESSION: 1. Fatty infiltration of the liver. 2. No definitive cholelithiasis. 4 mm probable cholesterol or inflammatory polyp. Gallbladder polyps 6mm or smaller have extremely low risk of malignancy and typically do not warrant follow up. On occasion polyps may actually represent small gallstones adherent to the gallbladder wall at surgery. 3. Negative for gallbladder wall thickening, pericholecystic fluid, or sonographic Cross's sign.
[2017-06-25 13:04] LABS: ALT 9 U/L (7-52); AST 13 U/L (13-39); Albumin 4.4 g/dL (3.2-5.2); Alkaline Phosphatase 48 U/L (34-104); Amylase 24 U/L (29-103); Anion Gap 5 mmol/L (2-11); BUN/Creatinine Ratio 15.8 (8-20); Blood Urea Nitrogen 15 mg/dL (6-24); C Reactive Protein 1.87 mg/L (< 5.00); CO2 Carbon Dioxide 27 mmol/L (22-32); Calcium 9.5 mg/dL (8.6-10.3); Chloride 104 mmol/L (101-111); EGFR African American 88.8 (>60); EGFR Non-African American 69.1 (>60); Globulin 2.9 g/dL (2-4); Glucose 70 mg/dL (70-100); Lipase < 10 U/L (11.0-82.0); Sodium 136 mmol/L (133-145); Total Protein 7.3 g/dL (6.4-8.9)
[2017-06-25] MEDS ORDERED: Ketorolac INJ* 30 MG/ML 1 ML VIAL IV PUSH ONE (13:55)
[2017-06-25] MEDS ORDERED: Al Hydrox/Mg Hydrox/Simet LIQ* 30 ML UDC PO ONE (14:18)
[2017-06-25] MEDS ORDERED: Lidocaine 2% VISCOUS* 15 ML UDC PO ONE (14:19)
[2017-06-25 14:46] LABS: Urine Bacteria Absent (Absent); Urine Bilirubin Negative (Negative); Urine Glucose Negative (Negative); Urine Nitrite Negative (Negative)
[2017-06-25 14:48] VITALS: BP 113/76
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
--- NOTE | 2017-06-27 09:01 | PN ---
Progress Note - Progress Note Date of Service: 06/25/17 Note: patient diagnosed and treated for UTI. Given nitrofurantoin. preliminary culture results grew 10-25,000 of e. coli. no further action required. will wait for final culture results although clinically insignificant amount of growth on preliminary results.
== END 2017-06-25 14:47 | disposition home or self-care (01) ==
LOC: ED 11:18
DX: N39.0 Urinary tract infection, site not specified (principal); R10.11 Right upper quadrant pain; Z87.891 Personal history of nicotine dependence
CPT/HCPCS: 36415; 76705; 80053; 81003; 81015; 82150; 83605; 83690; 84702; 85025; 86140; 87077; 87086; 87186; 99283; A9270-GY; J1885; J2270; J2405

== ENCOUNTER 2018-03-22 14:07 | Emergency (ER) | payer SELFPAY ==
[2018-03-22] MEDS ORDERED: Ketorolac INJ* 60 MG/2 ML VIAL IM ONE (15:35)
[2018-03-22] MEDS ORDERED: oxyCODONE/Acetamin 5/325 MG* TAB PO ONE (15:35)
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
[2018-03-22 17:36] LABS: ABS Basophils 0 10^3/ul (0-0.2); ABS Eosinophils 0 10^3/ul (0-0.6); ABS Lymphocytes 0.9 10^3/ul (1.0-4.8); ABS Monocytes 0.5 10^3/ul (0-0.8); ABS Neutrophils 3.2 10^3/ul (1.5-7.7); ABS Nucleated RBC 0 10^3/ul; Eosinophil % 1.1 % (0-6); Hematocrit 39 % (35-47); Hemoglobin 13.1 g/dl (12.0-16.0); Lymphocyte % 19.7 % (25-47); Mean Corpuscular HGB Conc 34 g/dl (31-36); Mean Corpuscular Hemoglobin 30 pg (27-31); Mean Corpuscular Volume 88 fL (80-97); Mean Platelet Volume 9.1 um3 (7.4-10.4); Nucleated Red Blood Cells % 0; Platelet Count 162 10^3/ul (150-450); Red Cell Distribution Width 14 % (10.5-15); White Blood Count 4.6 10^3/ul (3.5-10.8)
[2018-03-22 17:52] LABS: EGFR Non-African American 82.5 (>60)
--- NOTE | 2018-03-22 18:26 | PN ---
Progress Note - Progress Note Date of Service: 03/22/18 Note: Patient was signed out to me by Vy BOGGS, while awaiting labs. Labs today unremarkable. Recent evaluation for same back pain at [place] on 03/17/18 unremarkable. Vital signs today unremarkable. Patient will be told to follow- up with her back surgeon Dr. Zepeda for further evaluation of back pain.
[2018-03-22] MEDS ORDERED: predniSONE TAB* 20 MG PO ONE (18:33)
[2018-03-22 18:44] VITALS: BP 97/69
== END 2018-03-22 18:43 | disposition home or self-care (01) ==
LOC: ED 14:07
DX: M54.9 Dorsalgia, unspecified (principal); M54.16 Radiculopathy, lumbar region; Z85.41 Personal history of malignant neoplasm of cervix uteri; Z87.891 Personal history of nicotine dependence; Z96.9 Presence of functional implant, unspecified
CPT/HCPCS: 36415; 80048; 83605; 85025; 85652; 86140; 96372; 99282; A9270-GY; J1885; J7512

== ENCOUNTER 2018-05-22 22:53 | Emergency (ER) | payer OTHER ==
[2018-05-22] MEDS ORDERED: Ibuprofen TAB* 800 MG PO ONE (23:57)
[2018-05-22] MEDS ORDERED: oxyCODONE/Acetamin 5/325 MG* TAB PO ONE (23:57)
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
[2018-05-23 01:39] VITALS: BP 121/76
== END 2018-05-23 01:20 | disposition home or self-care (01) ==
LOC: ED 22:53
DX: S20.219A Contusion of unspecified front wall of thorax, initial encounter (principal); V47.5XXA Car driver injured in collision with fixed or stationary object in traffic accident, initial encounter; Y92.410 Unspecified street and highway as the place of occurrence of the external cause; E04.1 Nontoxic single thyroid nodule; Z87.891 Personal history of nicotine dependence
CPT/HCPCS: 70450; 70486; 72125; 99282; A9270-GY

== ENCOUNTER 2018-05-26 05:31 | Emergency (ER) | payer SELFPAY ==
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
[2018-05-26] MEDS ORDERED: NS 0.9% 1000 ML* 1,000 ML IV ONE (07:02)
[2018-05-26] MEDS ORDERED: diPHENhydraMINE IV* 50 MG/ML 1 ml VIAL (BENADRYL) IV ONE (07:02)
[2018-05-26] MEDS ORDERED: PROCHLORPERAZINE INJ 5 MG/ML 2 ML VIAL IV ONE (07:03)
[2018-05-26] MEDS ORDERED: Dexamethasone IV* 4 MG/ML 5 ML VIAL (20 MG) IVPB ONE (07:05)
[2018-05-26] MEDS ORDERED: Ketorolac INJ* 30 MG/ML 1 ML VIAL IV PUSH ONE (07:06)
[2018-05-26] MEDS ORDERED: diPHENhydraMINE PO* 25 MG PO ONE (07:32)
[2018-05-26 10:06] VITALS: BP 115/71
== END 2018-05-26 10:06 | disposition home or self-care (01) ==
LOC: ED 05:31
DX: G44.309 Post-traumatic headache, unspecified, not intractable (principal); F07.81 Postconcussional syndrome; M26.629 Arthralgia of temporomandibular joint, unspecified side; S46.001A Unspecified injury of muscle(s) and tendon(s) of the rotator cuff of right shoulder, initial encounter; S30.0XXA Contusion of lower back and pelvis, initial encounter; V49.9XXA Car occupant (driver) (passenger) injured in unspecified traffic accident, initial encounter; Y92.410 Unspecified street and highway as the place of occurrence of the external cause; Z87.891 Personal history of nicotine dependence
CPT/HCPCS: 70450; 72110; 96361; 96374; 96375; 99283; A9270-GY; J0780; J1100; J1885

== ENCOUNTER 2018-07-22 00:28 | Emergency (ER) | payer SELFPAY ==
[2018-07-22 01:44] LABS: ABS Basophils 0.1 10^3/ul (0-0.2); ABS Eosinophils 0.2 10^3/ul (0-0.6); ABS Lymphocytes 2.2 10^3/ul (1.0-4.8); ABS Monocytes 0.9 10^3/ul (0-0.8); ABS Neutrophils 8.7 10^3/ul (1.5-7.7); ABS Nucleated RBC 0 10^3/ul; Eosinophil % 1.4 %; Hematocrit 37 % (35-47); Hemoglobin 12.4 g/dl (12.0-16.0); Lymphocyte % 18.1 %; Mean Corpuscular HGB Conc 33 g/dl (31-36); Mean Corpuscular Hemoglobin 30 pg (27-31); Mean Corpuscular Volume 89 fL (80-97); Mean Platelet Volume 9.1 fL (7.4-10.4); Nucleated Red Blood Cells % 0.1; Platelet Count 215 10^3/ul (150-450); Red Blood Count 4.18 10^6/ul (4.00-5.40); Red Cell Distribution Width 14 % (10.5-15)
[2018-07-22 01:59] LABS: ALT 9 U/L (7-52); AST 11 U/L (13-39); Albumin 4.1 g/dL (3.2-5.2); Alkaline Phosphatase 45 U/L (34-104); Anion Gap 7 mmol/L (2-11); BUN/Creatinine Ratio 14.4 (8-20); Blood Urea Nitrogen 14 mg/dL (6-24); C Reactive Protein < 1.00 mg/L (<8.01); CO2 Carbon Dioxide 27 mmol/L (22-32); Calcium 9.4 mg/dL (8.6-10.3); Chloride 104 mmol/L (101-111); Globulin 2.1 g/dL (2-4); Glucose 100 mg/dL (70-100); Sodium 138 mmol/L (135-145); Total Protein 6.2 g/dL (6.4-8.9)
[2018-07-22] MEDS ORDERED: Iohexol 350* (CONTRAST) 500 ML MDV IV ONE (02:03)
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
[2018-07-22] MEDS ORDERED: Ketorolac INJ* 30 MG/ML 1 ML VIAL IV PUSH ONE ×2 (02:27→03:48)
[2018-07-22] MEDS ORDERED: PROCHLORPERAZINE INJ 5 MG/ML 2 ML VIAL IV ONE (02:52)
[2018-07-22] MEDS ORDERED: diPHENhydraMINE PO* 25 MG PO ONE (02:53)
--- NOTE | 2018-07-22 03:37 | ED ---
Progress - Progress Note Progress Note: This pt was signed out by FLAKITA Chavis, pending disposition, awaiting urinalysis. Course/Dx - Course Course Of Treatment: Urinalysis is consistent with UTI. Pt will be discharged home with prescription for Levaquin. Pt is to follow up with her PCP. She was instructed to return to the ED for any worsening or new symptoms. - Diagnoses Provider Diagnoses: Left-sided face pain, Neck pain, Back pain, UTI (urinary tract infection) Discharge - Sign-Out/Discharge Documenting (check all that apply): Patient Departure - Discharge home, Receiving Sign-Out Receiving patient FROM: Jyoti Loya - Discharge Plan Condition: Stable Disposition: HOME Prescriptions: Levofloxacin TAB* [Levaquin TAB*] 500 mg PO DAILY #7 tab Patient Education Materials: Urinary Tract Infection in Women (ED), Atypical Facial Pain (ED) Referrals: Jai Younger MD [Primary Care Provider] - Additional Instructions: Follow up with primary within 5 days Take tylenol or ibuprofen every 6 hours as needed for pain apply heat to area avoid hard, chewy food Return to ED if develop any new or worsening symptoms. - Attestation Statements Document Initiated by Scribe: Yes Documenting Scribe: Itzel Waite Provider For Whom Scribe is Documenting (Include Credential): Gustavo Garcia MD Scribe Attestation: Itzel Cheng, scribed for Gustavo Garcia MD on 07/22/18 at 0413. Status of Scribe Document: Ready
[2018-07-22] MEDS ORDERED: Morphine VIAL* 4 MG/ML VIAL (1 ml vial) IV ONE (03:48)
[2018-07-22] MEDS ORDERED: NS 0.9% 1000 ML** 1,000 ML IV ONE (03:48)
[2018-07-22 04:01] LABS: Urine Appearance Cloudy; Urine Bacteria Absent (Absent); Urine Bilirubin Negative (Negative); Urine Blood 2+ (Negative); Urine Color Yellow; Urine Glucose Negative (Negative); Urine Ketones 1+ (Negative); Urine Nitrite Negative (Negative); Urine Protein Negative (Negative); Urine Red Blood Cell 2+(6-10/hpf) (Absent); Urine Specific Gravity > 1.060 (1.010-1.030); Urine Squamous Epithelial Cell Present (Absent); Urine Urobilinogen Negative (Negative); Urine White Blood Cell Trace(0-5/hpf) (Absent)
[2018-07-22] MEDS ORDERED: Levofloxacin TAB* 500 MG PO ONE (04:10)
[2018-07-22 04:57] VITALS: BP 90/63
== END 2018-07-22 04:57 | disposition home or self-care (01) ==
LOC: ED 00:28
DX: R51 Headache (principal); M54.2 Cervicalgia; M54.9 Dorsalgia, unspecified; N39.0 Urinary tract infection, site not specified; Z87.891 Personal history of nicotine dependence
CPT/HCPCS: 36415; 70450; 70496; 70498; 80053; 81003; 81015; 83605; 83690; 84702; 85025; 86140; 87086; 96374; 96375; 96376; 99283; A9270-GY; J0780; J1885; Q9967

== ENCOUNTER 2018-08-19 14:44 | Emergency (ER) | payer MEDICAID ==
[2018-08-19 15:10] VITALS: BP 120/72
--- NOTE | 2018-08-19 15:40 | UC ---
Dental HPI - HPI Summary HPI Summary: 33-year-old woman comes in with a chief complaint of left lower molar dental pain and gingival swelling. She's a broken tooth on the left lower molars and it's been getting her pain and now she is having gingival swelling. To try to get in to the dentist but due to insurance looks like she will be able to get into September 2018. Pain is worse with biting chewing or any palpation of the tooth. She's been taken ibuprofen which decreases the pain some not very much. No fevers or chills. Left shoulder started hurting the patient go more than 2 weeks ago. No known trauma. Pain is worse with abduction extension and internal rotation. Pain is right in the shoulder joint itself. She reports it radiates sometimes to the neck sometimes on the arm. Due to she have some tingling in the arm down to the hands but that's intermittent and she has none now. Ibuprofen is helped somewhat the shoulder but not much. - History of Current Complaint Chief Complaint: UCUpperExtremity Stated Complaint: TOOTH ACHE AND SHOULDER INJURY Time Seen by Provider: 08/19/18 15:23 Hx Last Menstrual Period: July Pain Intensity: 6 - Allergies/Home Medications Allergies/Adverse Reactions: Allergies Allergy/AdvReac Type Severity Reaction Status Date / Time No Known Allergies Allergy Verified 08/19/18 15:10 Home Medications: Home Medications Ibuprofen TAB* [Advil TAB*] 800 mg PO PRN 08/19/18 [History] PMH/Surg Hx/FS Hx/Imm Hx Previously Healthy: Yes Other History Of: Negative For: HIV, Hepatitis B, Hepatitis C, Anticoagulant Therapy - Surgical History Surgical History: Yes Surgery Procedure, Year, and Place: D&C [place]. right inguinal hernia 2014. TUBAL LIGATION [facility] [place]. SPINAL FUSION L5/S1 2011 [place]. CHOLECYSTECTOMY 2017 - Family History Known Family History: Positive: Cardiac Disease, Hypertension - Father, Diabetes - Father, Respiratory Disease - COPD, Other - CA - mouth, throat and lung; substance abuse - Social History Alcohol Use: Occasionally Substance Use Type: Marijuana Substance Use Comment - Amount & Last Used: daily Smoking Status (MU): Former Smoker Have You Smoked in the Last Year: Yes Household Exposure Type: Cigarettes - Immunization History Most Recent Influenza Vaccination: no Review of Systems All Other Systems Reviewed And Are Negative: Yes Constitutional: Positive: Negative Skin: Positive: Negative Eyes: Positive: Negative ENT: Positive: Dental Pain Respiratory: Positive: Negative Cardiovascular: Positive: Negative Gastrointestinal: Positive: Negative Motor: Positive: Decreased ROM Neurovascular: Positive: Negative Musculoskeletal: Positive: Other: - see hpi Neurological: Positive: Negative Psychological: Positive: Negative Is Patient Immunocompromised?: No Physical Exam Triage Information Reviewed: Yes Appearance: Well-Appearing, No Pain Distress, Well-Nourished Vital Signs: Initial Vital Signs Temp 98.5 F 08/19/18 15:05 Pulse 96 08/19/18 15:05 Resp 16 08/19/18 15:05 BP 120/72 08/19/18 15:05 Pulse Ox 99 08/19/18 15:05 Vital Signs Reviewed: Yes Eye Exam: Normal Eyes: Positive: Conjunctiva Clear ENT: Positive: Pharynx normal, TMs normal. Negative: Nasal congestion, Nasal drainage Dental: Positive: Dental Fracture @ - left lower molar, Abscess @ - left lower Respiratory Exam: Normal Respiratory: Positive: Lungs clear, Normal breath sounds, No respiratory distress Cardiovascular: Positive: RRR Musculoskeletal: Positive: Other: - Patient is tender to palpation right in the left shoulder joint. Neck is nontender with full range of motion. Patient has normal radial pulses normal capillary refill in both arms no sensation deficit she has full strength and range of motion in the fingers wrists and elbows. Right shoulder extension 170 cleft 80. Right shoulder abduction 170 left 80 . Right shoulder internal rotation T4 left shoulder internal rotation T10. Neurological Exam: Normal Neurological: Positive: Alert, Muscle Tone Normal Psychological Exam: Normal Psychological: Positive: Age Appropriate Behavior Skin Exam: Normal Dental Complaint Course/Dx - Course Course Of Treatment: Order Information: SHOULDER LEFT 2+ VWS. Accession Number : [id number]. CPT: 34301. Indication: Left shoulder pain. 4 views of left shoulder demonstrates no fracture or dislocation. No other bone or joint. abnormality is identified. Joint spaces all well-preserved. Visualized chest is. unremarkable. IMPRESSION: Unremarkable left shoulder. . <Electronically signed by Rhona Winn MD in OV> 08/19/18 1555. I discussed the x-ray results with the patient. We discussed range of motion of the shoulder and also putting ice on it and using anti-inflammatories. We discussed the use of the sling the patient would prefer to have a sling at this time. We discussed the need to take the arm out of the sling multiple times a day to ensure avoidance of a frozen shoulder. It' s shoulder does not improve completely she'll follow-up with sports medicine. For the dental infection were to amoxicillin and hydrocodone she's continue the ibuprofen as needed as directed with appropriate dosing and follow-up with the dentist. - Differential Dx/Diagnosis Provider Diagnosis: Left shoulder pain, Dental abscess Discharge - Sign-Out/Discharge Documenting (check all that apply): Patient Departure All imaging exams completed and their final reports reviewed: Yes - Discharge Plan Condition: Stable Disposition: HOME Prescriptions: Amoxicillin PO (*) [Amoxicillin 500 MG CAP*] 500 mg PO TID #30 cap HYDROcodone/ACETAMIN 5-325 MG* [Sylvester 5-325 TAB*] 1 tab PO Q4H PRN #20 tab MDD 6 PRN Reason: Pain Patient Education Materials: Dental Abscess (ED), Shoulder Pain (ED) Referrals: Jai Younger MD [Primary Care Provider] - Wes Clark [Medical Doctor] - Reyna Kulkarni MD [Medical Doctor] - Additional Instructions: FOLLOW UP WITH YOUR DENTIST AND SPORTS MEDICINE. GET RECHECKED FOR ANY WORSENING OF YOUR CONDITION OR QUESTIONS OR CONCERNS. - Billing Disposition and Condition Condition: STABLE Disposition: Home
== END 2018-08-19 16:20 | disposition home or self-care (01) ==
LOC: UCEAST 14:44
DX: K04.7 Periapical abscess without sinus (principal); M25.512 Pain in left shoulder; Z87.891 Personal history of nicotine dependence
CPT/HCPCS: 36415; 86703; 99213; G0463

== ENCOUNTER 2018-08-21 12:09 | Emergency (ER) | payer MEDICAID ==
[2018-08-21] MEDS ORDERED: Morphine VIAL* 10 MG/ML 1 ML VIAL IV ONE (12:17)
[2018-08-21] MEDS ORDERED: Ondansetron INJ* 2 MG/ML VIAL IV ONE ×2 (12:17→21:16)
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
[2018-08-21] MEDS: NS 0.9% 1000 ML** 2,000 ML IV ONE (12:34)
[2018-08-21 12:44] LABS: ABS Basophils 0 10^3/ul (0-0.2); ABS Eosinophils 0 10^3/ul (0-0.6); ABS Monocytes 0.4 10^3/ul (0-0.8); ABS Neutrophils 12.4 10^3/ul (1.5-7.7); ABS Nucleated RBC 0 10^3/ul; Eosinophil % 0.1 %; Hematocrit 40 % (35-47); Hemoglobin 13.4 g/dl (12.0-16.0); Lymphocyte % 7.5 %; Mean Corpuscular HGB Conc 33 g/dl (31-36); Mean Corpuscular Hemoglobin 29 pg (27-31); Mean Corpuscular Volume 87 fL (80-97); Nucleated Red Blood Cells % 0; Platelet Count 325 10^3/ul (150-450); Red Cell Distribution Width 13 % (10.5-15); White Blood Count 13.8 10^3/ul (3.5-10.8)
[2018-08-21] MEDS ORDERED: Metoclopramide IV* 5 MG/ML 2 ML VIAL IV ONE (13:01)
[2018-08-21] MEDS ORDERED: Ketorolac INJ* 30 MG/ML 1 ML VIAL IV PUSH ONE (13:01)
[2018-08-21 13:03] LABS: ALT 20 U/L (7-52); AST 14 U/L (13-39); Albumin 5.1 g/dL (3.2-5.2); Albumin/Globulin Ratio 1.8 (1-3); Alkaline Phosphatase 61 U/L (34-104); Amylase 26 U/L (29-103); Anion Gap 15 mmol/L (2-11); BUN/Creatinine Ratio 10.6 (8-20); Blood Urea Nitrogen 7 mg/dL (6-24); CO2 Carbon Dioxide 20 mmol/L (22-32); Chloride 101 mmol/L (101-111); Creatine Kinase 123 U/L (10-223); EGFR African American 126.4 (>60); EGFR Non-African American 104.5 (>60); Globulin 2.8 g/dL (2-4); Glucose 121 mg/dL (70-100); Magnesium 1.8 mg/dL (1.9-2.7); Potassium 3.6 mmol/L (3.5-5.0); Sodium 136 mmol/L (135-145); Total Protein 7.9 g/dL (6.4-8.9)
[2018-08-21 13:08] LABS: HCG Pregnancy < 0.60 mIU/mL
[2018-08-21] MEDS ORDERED: Iohexol 300* (CONTRAST) 10 ML SDV IV ONE (13:42)
[2018-08-21 16:44] LABS: Urine Appearance Clear; Urine Bacteria Absent (Absent); Urine Bilirubin Negative (Negative); Urine Blood Negative (Negative); Urine Color Straw; Urine Glucose Negative (Negative); Urine Ketones 2+ (Negative); Urine Nitrite Negative (Negative); Urine Protein Negative (Negative); Urine Red Blood Cell Trace(0-2/hpf) (Absent); Urine Specific Gravity > 1.060 (1.010-1.030); Urine Squamous Epithelial Cell Present (Absent); Urine Urobilinogen Negative (Negative); Urine White Blood Cell Trace(0-5/hpf) (Absent)
[2018-08-21] MEDS ORDERED: PROCHLORPERAZINE INJ 5 MG/ML 2 ML VIAL IV PRN (16:47)
[2018-08-21] MEDS ORDERED: PROCHLORPERAZINE INJ 5 MG/ML 2 ML VIAL ONE (16:51)
[2018-08-21] MEDS ORDERED: Famotidine IV* 10 MG/ML 2 ML (20 mg) IV SLOW PU ONE (16:52)
[2018-08-21] MEDS ORDERED: Famotidine IV* 10 MG/ML 2 ML (20 mg) ONE (16:53)
[2018-08-21 19:00] LABS: Alcohol < 10 mg/dL (<10)
[2018-08-21] MEDS ORDERED: Ondansetron INJ* 2 MG/ML VIAL ONE (21:18)
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
--- NOTE | 2018-08-21 22:08 | ED ---
Progress - Progress Note Progress Note: This patient was signed out to Dr. Garcia from Dr. Roger pending CT Abd/pelvis and disposition. - Results/Orders Results/Orders: CT Abd/Pelvis: Interpreted by radiologist. Impression: no CT findings to correlate with patients symptomatology. Specifically no appendicitis. Dr. Garcia has reviewed this report. Re-Evaluation - Re-Evaluation First Eval Re-Evaluation Time: 19:30 Change: Unchanged Comment: Patient was not drinking contrast at this time. I communicated that she needs to drink the contrast, and she began to drink the contrast. Course/Dx - Course Course Of Treatment: This patient was signed out to Dr. Garcia from Dr. Roger pending CT Abd/pelvis, consult, and disposition. CT Abd/Pelvis reveals, per radiologist, no CT findings to correlate with patients symptomatology. Specifically no appendicitis. ED physician has reviewed this radiology report. Patient will be discharged home with follow up from PCP. Dx abd pain. The patient is agreeable with this plan. - Diagnoses Provider Diagnoses: Abdominal pain Discharge - Sign-Out/Discharge Documenting (check all that apply): Patient Departure - discharge home, Receiving Sign-Out Receiving patient FROM: Rom Roger Patient Received Moderate/Deep Sedation with Procedure: No - Discharge Plan Condition: Stable Disposition: HOME Patient Education Materials: Abdominal Pain (ED) Referrals: Jai Younger MD [Primary Care Provider] - Additional Instructions: Follow up with primary care physician in 1-2 days. Return to the emergency department with any new or worsening symptoms. - Attestation Statements Document Initiated by Scribe: Yes Documenting Scribe: Jyoti Avalos Provider For Whom Scribe is Documenting (Include Credential): Gustavo Garcia MD Scribe Attestation: Jyoti Cheng, scribed for Gustavo Garcia MD on 08/22/18 at 0122. Status of Scribe Document: Ready
[2018-08-22 01:34] VITALS: BP 123/76
== END 2018-08-22 01:42 | disposition home or self-care (01) ==
LOC: ED 12:09
DX: R10.31 Right lower quadrant pain (principal); Z87.891 Personal history of nicotine dependence; E07.9 Disorder of thyroid, unspecified; Z85.41 Personal history of malignant neoplasm of cervix uteri
CPT/HCPCS: 36415; 74176; 74177; 80053; 80320; 81003; 81015; 82150; 82550; 83605; 83690; 83735; 84702; 85025; 86140; 87086; 87389; 96361; 96374; 96375; 96376; 99283; G0475; G0480; J0780; J1885; J2270; J2405; J2765; Q9967

== ENCOUNTER 2018-08-22 16:19 | Inpatient (IN) | payer MEDICAID ==
[2018-08-22 17:59] LABS: ABS Basophils 0.1 10^3/ul (0-0.2); ABS Eosinophils 0 10^3/ul (0-0.6); ABS Lymphocytes 1.8 10^3/ul (1.0-4.8); ABS Neutrophils 15.5 10^3/ul (1.5-7.7); ABS Nucleated RBC 0 10^3/ul; Eosinophil % 0.1 %; Hematocrit 39 % (35-47); Lymphocyte % 9.7 %; Mean Corpuscular HGB Conc 33 g/dl (31-36); Mean Corpuscular Hemoglobin 29 pg (27-31); Mean Corpuscular Volume 88 fL (80-97); Nucleated Red Blood Cells % 0; Platelet Count 344 10^3/ul (150-450); Red Blood Count 4.45 10^6/ul (4.00-5.40); Red Cell Distribution Width 13 % (10.5-15); White Blood Count 18.5 10^3/ul (3.5-10.8)
[2018-08-22 18:13] LABS: ALT 15 U/L (7-52); AST 14 U/L (13-39); Albumin 4.7 g/dL (3.2-5.2); Albumin/Globulin Ratio 1.9 (1-3); Alkaline Phosphatase 56 U/L (34-104); Anion Gap 10 mmol/L (2-11); Blood Urea Nitrogen 17 mg/dL (6-24); C Reactive Protein 3.08 mg/L (<8.01); CO2 Carbon Dioxide 24 mmol/L (22-32); Calcium 9.5 mg/dL (8.6-10.3); Chloride 103 mmol/L (101-111); EGFR African American 78.2 (>60); EGFR Non-African American 64.7 (>60); Globulin 2.5 g/dL (2-4); Glucose 116 mg/dL (70-100); Potassium 3.3 mmol/L (3.5-5.0); Sodium 137 mmol/L (135-145); Total Protein 7.2 g/dL (6.4-8.9)
[2018-08-22 18:19] LABS: HCG Pregnancy < 0.60 mIU/mL
[2018-08-22] MEDS ORDERED: Ondansetron INJ* 2 MG/ML VIAL IV ONE (18:28)
[2018-08-22] MEDS ORDERED: NS 0.9% 1000 ML** 1,000 ML IV ONE (18:28)
[2018-08-22] MEDS ORDERED: HYDROmorphone INJ1* 1 MG/ML SYRINGE IV SLOW PU ONE (18:28)
[2018-08-22] MEDS ORDERED: Ondansetron INJ* 2 MG/ML VIAL ONE (18:30)
[2018-08-22] MEDS ORDERED: HYDROmorphone INJ1* 1 MG/ML SYRINGE ONE (18:30)
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
[2018-08-22] MEDS ORDERED: NS 0.9% 1000 ML** 1,000 ML IV.FLUID IV ONE (21:50)
[2018-08-22] MEDS ORDERED: Acetaminophen TAB* 325 MG PO PRN (21:55)
[2018-08-22] MEDS: Ketorolac INJ* 15 MG/ML 1 ML VIAL IV PUSH PRN (22:16)
[2018-08-22] MEDS: Ondansetron INJ* 2 MG/ML VIAL IV PRN (22:16)
[2018-08-22] MEDS: KCL 10 MEQ/50 ML IVPREMIX* 10 MEQ/50 ML BAG IV SCH ×2 (22:25→23:27)
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
[2018-08-23] MEDS: KCL 10 MEQ/50 ML IVPREMIX* 10 MEQ/50 ML BAG IV SCH (01:53)
[2018-08-23] MEDS: Lactated Ringers 1000 ML Bag* 1,000 ML IV SCH ×4 (03:04→23:52)
[2018-08-23] MEDS: Morphine VIAL* 10 MG/ML 1 ML VIAL IV PRN ×2 (03:33→07:27)
[2018-08-23] MEDS: Ondansetron INJ* 2 MG/ML VIAL IV PRN ×2 (04:06→10:47)
[2018-08-23] MEDS: Ketorolac INJ* 15 MG/ML 1 ML VIAL IV PUSH PRN ×3 (04:17→17:07)
[2018-08-23 05:19] LABS: Hematocrit 33 % (35-47); Mean Corpuscular HGB Conc 33 g/dl (31-36); Mean Corpuscular Hemoglobin 30 pg (27-31); Mean Corpuscular Volume 89 fL (80-97); Mean Platelet Volume 8.8 fL (7.4-10.4); Platelet Count 227 10^3/ul (150-450); Red Blood Count 3.74 10^6/ul (4.00-5.40); Red Cell Distribution Width 13 % (10.5-15); White Blood Count 9.8 10^3/ul (3.5-10.8)
[2018-08-23 05:29] LABS: Calcium 8.4 mg/dL (8.6-10.3); Potassium 3.5 mmol/L (3.5-5.0)
[2018-08-23 05:35] LABS: C Reactive Protein 1.8 mg/L (<8.01); EGFR African American 120.1 (>60); EGFR Non-African American 99.2 (>60)
[2018-08-23] MEDS: Morphine INJ* 2 MG/ML 1 ML SYRINGE (TWO MG - NEW SYRINGE VERSION) IV PRN ×4 (09:39→22:46)
[2018-08-23] MEDS: Famotidine IV* 10 MG/ML 2 ML (20 mg) IV SCH ×2 (09:41→20:55)
--- NOTE | 2018-08-23 12:05 | PN ---
Progress Note - Progress Note Date of Service: 08/23/18 SOAP: Subjective: Patient initially seen at 0815 this AM and again at 1145 She slept well-still with some RLQ pain and nausea, developed some chest pain substernally later this morning Ambulating, passing flatus and urinating without difficulty No SOB Objective: Temp Pulse Resp BP Pulse Ox 98.5 F 73 16 105/65 99 08/23/18 11:06 08/23/18 11:06 08/23/18 11:06 08/23/18 11:06 08/23/18 11:06 Intake & Output 08/21/18 08/22/18 08/23/18 08/24/18 06:59 06:59 06:59 06:59 Intake Total 2299 980 Output Total 500 100 Balance 1799 880 Weight 160 lb Intake: IV Fluids 2299 980 LR 980 potassium 149 Oral 0 0 Output: Urine 500 100 PEX: Appears comfortable Lungs are clear Cor is RRR Abd is soft and non-distended. Bowel sounds are present. Mild tenderness in the RLQ without mass, rigidity, guarding or rebound tenderness Ext without edema Laboratory Last Values WBC 9.8 10^3/ul (3.5-10.8) 08/23/18 05:14 RBC 3.74 10^6/ul (4.00-5.40) L 08/23/18 05:14 Hgb 11.0 g/dl (12.0-16.0) L 08/23/18 05:14 Hct 33 % (35-47) L 08/23/18 05:14 MCV 89 fL (80-97) 08/23/18 05:14 MCH 30 pg (27-31) 08/23/18 05:14 MCHC 33 g/dl (31-36) 08/23/18 05:14 RDW 13 % (10.5-15) 08/23/18 05:14 Plt Count 227 10^3/ul (150-450) 08/23/18 05:14 MPV 8.8 fL (7.4-10.4) 08/23/18 05:14 Neut % (Auto) 84.0 % 08/22/18 17:46 Lymph % (Auto) 9.7 % 08/22/18 17:46 [place] % (Auto) 5.7 % 08/22/18 17:46 Eos % (Auto) 0.1 % 08/22/18 17:46 Baso % (Auto) 0.5 % 08/22/18 17:46 Absolute Neuts (auto) 15.5 10^3/ul (1.5-7.7) H 08/22/18 17:46 Absolute Lymphs (auto) 1.8 10^3/ul (1.0-4.8) 08/22/18 17:46 Absolute Monos (auto) 1.0 10^3/ul (0-0.8) H 08/22/18 17:46 Absolute Eos (auto) 0 10^3/ul (0-0.6) 08/22/18 17:46 Absolute Basos (auto) 0.1 10^3/ul (0-0.2) 08/22/18 17:46 Absolute Nucleated RBC 0 10^3/ul 08/22/18 17:46 Nucleated RBC % 0 08/22/18 17:46 D-Dimer, Quantitative 210 ng/mL (Less Than 230) 08/23/18 11:01 Sodium 137 mmol/L (135-145) 08/23/18 05:14 Potassium 3.5 mmol/L (3.5-5.0) 08/23/18 05:14 Chloride 109 mmol/L (101-111) 08/23/18 05:14 Carbon Dioxide 22 mmol/L (22-32) 08/23/18 05:14 Anion Gap 6 mmol/L (2-11) 08/23/18 05:14 BUN 9 mg/dL (6-24) 08/23/18 05:14 Creatinine 0.69 mg/dL (0.51-0.95) 08/23/18 05:14 Est GFR ( Amer) 120.1 (>60) 08/23/18 05:14 Est GFR (Non-Af Amer) 99.2 (>60) 08/23/18 05:14 BUN/Creatinine Ratio 13.0 (8-20) 08/23/18 05:14 Glucose 87 mg/dL (70-100) 08/23/18 05:14 Lactic Acid 0.6 mmol/L (0.5-2.0) 08/23/18 05:14 Calcium 8.4 mg/dL (8.6-10.3) L 08/23/18 05:14 Total Bilirubin 0.50 mg/dL (0.2-1.0) 08/22/18 17:46 AST 14 U/L (13-39) 08/22/18 17:46 ALT 15 U/L (7-52) 08/22/18 17:46 Alkaline Phosphatase 56 U/L (34-104) 08/22/18 17:46 Troponin I 0.00 ng/mL (<0.04) 08/23/18 11:01 C-Reactive Protein 1.80 mg/L (<8.01) 08/23/18 05:14 Total Protein 7.2 g/dL (6.4-8.9) 08/22/18 17:46 Albumin 4.7 g/dL (3.2-5.2) 08/22/18 17:46 Globulin 2.5 g/dL (2-4) 08/22/18 17:46 Albumin/Globulin Ratio 1.9 (1-3) 08/22/18 17:46 Lipase < 10 U/L (11.0-82.0) L 08/22/18 17:46 Beta HCG, Quant < 0.60 mIU/mL 08/22/18 17:46 Assessment: RLQ abd pain-CT and US normal, WBC down to normal overnight without being on antibiotics. No peritoneal irritation, remains afebrile without tachycardia. I do not believe she has appendicitis or acute surgical abdomen that requires surgical intervention at this point. She has persistent nausea. Chest pain-new onset-EKG and troponin normal, will send for CXR. Plan: Continue IVF and NPO Anti-emetics CXR Hospitalist consult for CP evaluation Continue to observe for now-discussed with patient and her boyfriend.
--- NOTE | 2018-08-23 15:12 | ECHO ---
Patient: DINORA LINDQUIST [facility] Rec#: [id number] : 1985 Date: 08/23/2018 Age: 33y Height: 173 cm / 68.1 in Weight: 73 kg / 160.9 lbs Sex: F BSA: 1.87 Room#: 331 Admit Date#: 08/22/2018 Type: Inpatient Referring: Temitope Alexandre MD Reading: Marco A Cronin MD Job Lithographer: Paz Sofia RDCS,RDMS CC: Jai Younger MD Transthoracic Echocardiogram Indication: CP BP: 105/65 HR: 67 Rhythm: NSR Findings History: Former smoker Technical Comments: The study quality is good. Left Ventricle: The left ventricular chamber size is normal. There is no left ventricular hypertrophy. Global left ventricular wall motion and contractility are within normal limits. There is normal left ventricular systolic function. The estimated ejection fraction is 55-60%. Normal left ventricular diastolic filling is observed. Left Atrium: The left atrial chamber size is normal. Right Ventricle: The right ventricular chamber size and systolic function are within normal limits. Right Atrium: The right atrial cavity size is normal. Aortic Valve: There is no evidence of aortic valve thickening. Systolic excursion of the aortic valve is normal. There is no evidence of aortic regurgitation. There is no evidence of aortic stenosis. Mitral Valve: The mitral valve leaflets appear normal. There is a trace of mitral regurgitation. There is no evidence of mitral stenosis. Tricuspid Valve: The tricuspid valve leaflets are normal. There is trace tricuspid regurgitation. Pulmonic Valve: The pulmonic valve structure is not well visualized. There is a trace pulmonic regurgitation. Pericardium: There is no significant pericardial effusion. Aorta: The aortic root appears normal. There is no dilatation of the aortic arch. Pulmonary Artery: The main pulmonary artery is not well visualized. Venous: The inferior vena cava appears normal in size. There is a greater than 50% respiratory change in the inferior vena cava dimension. Summary: There was not any prior study for comparison. Conclusions Global left ventricular wall motion and contractility are within normal limits. There is normal left ventricular systolic function. The estimated ejection fraction is 55-60%. There is no evidence of aortic stenosis. There is a trace of mitral regurgitation. There is trace tricuspid regurgitation. There is no significant pericardial effusion. Measurements Name Value Normal Range RVIDd (AP) 2D 2.2 cm (0.9 - 2.6) RVDdMajor (2D) 2 cm (2.2 - 4.4) RAd ISD 4CH 4.4 cm (3.4 - 4.9) RA (A4C)W 3.3 cm (2.9 - 4.6) IVSd (2D) 0.9 cm (0.6 - 1) LVPWd (2D) 0.7 cm (0.6 - 1) LVIDd (2D) 4.7 cm (3.6 - 5.4) LVIDs (2D) 3.2 cm - LV FS (2D) 32 % (25 - 45) Aortic Annulus 2.1 cm (1.4 - 2.6) Ao root diameter (2D) 2.9 cm (2.1 - 3.5) Ascending Ao 2.9 cm (2.1 - 3.4) Aortic arch 2.1 cm (1.8 - 3.4) LA dimension (AP) 2D 3.2 cm (2.3 - 3.8) LAd ISD 4CH 4.1 cm (2.9 - 5.3) LA ISD 4CH W 3.3 cm (2.5 - 4.5) Name Value Normal Range LA ESV BP (A/L) index 13 ml/m2 - Name Value Normal Range MV E-wave Vmax 0.9 m/sec - MV deceleration time 211 msec - MV A-wave Vmax 0.4 m/sec - MV E:A ratio 2.1 ratio - P. vein S-wave Vmax 0.5 m/sec - P. vein D-wave Vmax 0.4 m/sec - P. vein S:D Vmax ratio 1.2 ratio - P. vein A-wave duration 103 msec - LV septal e' Vmax 0.12 m/sec - LV lateral e' Vmax 0.15 m/sec - LV E:e' septal ratio 7 ratio - LV E:e' lateral ratio 6 ratio - Name Value Normal Range AV Vmax 1.1 m/sec - AV VTI 21 cm - AV peak gradient 5 mmHg - AV mean gradient 2 mmHg - LVOT Vmax 0.9 m/sec - LVOT VTI 20 cm - LVOT peak gradient 3 mmHg - LVOT mean gradient 2 mmHg - MARITZA Vmax 0.9 m/sec - Name Value Normal Range RAP 8 mmHg - IVC diameter 1.7 cm - Name Value Normal Range PV Vmax 0.8 m/sec - PV peak gradient 2.6 mmHg -
[2018-08-24] MEDS: Ketorolac INJ* 15 MG/ML 1 ML VIAL IV PUSH PRN ×4 (00:01→20:23)
[2018-08-24] MEDS: Morphine INJ* 2 MG/ML 1 ML SYRINGE (TWO MG - NEW SYRINGE VERSION) IV PRN ×3 (01:58→07:28)
[2018-08-24] MEDS: Ondansetron INJ* 2 MG/ML VIAL IV PRN ×2 (02:07→09:26)
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
[2018-08-24] MEDS: Lactated Ringers 1000 ML Bag* 1,000 ML IV SCH ×3 (05:39→16:06)
[2018-08-24] MEDS: Famotidine IV* 10 MG/ML 2 ML (20 mg) IV SCH (08:31)
[2018-08-24] MEDS ORDERED: Lactated Ringers 1000 ML Bag* 1,000 ML IV SCH (09:04)
--- NOTE | 2018-08-24 09:11 | PN ---
Progress Note - Progress Note Date of Service: 08/24/18 SOAP: Subjective: Chest pain resolved RLQ still persists, intermittent stabbing pain Nausea better-no vomiting Ambulating Started menstrual period, she is passing flatus Objective: Temp Pulse Resp BP Pulse Ox 97.4 F 65 18 107/66 99 08/24/18 07:18 08/24/18 07:18 08/24/18 07:37 08/24/18 07:18 08/24/18 07:18 Intake & Output 08/22/18 08/23/18 08/24/18 08/25/18 06:59 06:59 06:59 06:59 Intake Total 2299 3987 Output Total 500 1450 Balance 1799 2537 Weight 160 lb Intake: IV Fluids 2299 3987 LR 3987 potassium 149 Oral 0 0 Output: Urine 500 1450 PEX: Comfortable-texting on phone in bed, NAD Lungs are clear-normal respiratory effort Cor is RRR Abd is soft and non-distended. Bowel sounds are present. Mild tenderness in RLQ without rigidity, guarding, rebound tenderness or generalized pain. Ext without edema Labs noted EKG WNL ECHO/CXR no acute findings Assessment: RLQ abd pain-? etiology-w/u negative, nl WBC and no fever, exam is unimpressive. I don't believe this is ROLL OUT MANAGER etiology. Chest pain resolved-w/u negative Plan: Clear liquids D/C narcotics Toradol Check WBC If tolerates po and WBC normal, D/C home today Discussed with patient.
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
[2018-08-24 10:02] LABS: ABS Basophils 0.1 10^3/ul (0-0.2); ABS Eosinophils 0.1 10^3/ul (0-0.6); ABS Lymphocytes 2.3 10^3/ul (1.0-4.8); ABS Monocytes 0.6 10^3/ul (0-0.8); ABS Neutrophils 4.6 10^3/ul (1.5-7.7); ABS Nucleated RBC 0 10^3/ul; Eosinophil % 1.7 %; Hematocrit 34 % (35-47); Hemoglobin 11.5 g/dl (12.0-16.0); Lymphocyte % 29.8 %; Mean Corpuscular HGB Conc 34 g/dl (31-36); Mean Corpuscular Hemoglobin 30 pg (27-31); Mean Corpuscular Volume 88 fL (80-97); Mean Platelet Volume 9.1 fL (7.4-10.4); Nucleated Red Blood Cells % 0; Platelet Count 212 10^3/ul (150-450); Red Cell Distribution Width 13 % (10.5-15); White Blood Count 7.7 10^3/ul (3.5-10.8)
--- NOTE | 2018-08-24 16:57 | PN ---
Progress Note - Progress Note Date of Service: 08/24/18 SOAP: Subjective: I had discussion with patient and her mother at 1300 today-she expressed concern that an etiology of her pain has not been determined and she did not want her daughter discharged with persistent pain and nausea. I explained and reviewed the workup and tests performed to date. I do not believe she has acute appendicitis or other acute general surgical condition that requires surgical intervention. CT also shows normal ovaries and uterus. A pelvic exam was performed in the ER and was described as normal-I cannot find culture results, her WBC is normal and she has not had a fever. After our discussion, plan will be: US of pelvis-this has been completed and shows no ovarian or uterine abnormality. RX SPECIALIST consult--Discussed with Dr. Agarwal GI consult-Discussed with Dr. Campuzano. Will continue present care for now, keep NPO and continue IVF.
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
[2018-08-24] MEDS: Pantoprazole IV* 40 MG IV SCH (19:11)
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
[2018-08-24] MEDS: diPHENhydraMINE PO* 25 MG PO PRN ×2 (22:12→22:38)
[2018-08-25] MEDS: Ketorolac INJ* 15 MG/ML 1 ML VIAL IV PUSH PRN ×3 (01:39→15:05)
[2018-08-25] MEDS: Pantoprazole IV* 40 MG IV SCH (08:23)
--- NOTE | 2018-08-25 09:27 | PN ---
Progress Note - Progress Note Date of Service: 08/25/18 SOAP: Subjective: Nausea resolved, tolerating clear liquids. She still has RLQ abd pain. Passing flatus Ambulating in halls Complains of inability to get enough sleep. No further chest pain Objective: Temp Pulse Resp BP Pulse Ox 98.4 F 63 16 97/59 98 08/25/18 03:21 08/25/18 03:21 08/25/18 03:29 08/25/18 03:21 08/25/18 03:21 PEX: Appears comfortable Lungs are clear Cor is RRR Abd is soft and non-distended. Bowel sounds are present. Mild tenderness in the RLQ without rigidity, guarding or rebound Assessment: RLQ abd pain Nausea-resolved GI and INSTITUTIONAL AIDE consults appreciated. Plan: Advance diet PPI Observe for now-if tolerates po would like to discharge later today.
[2018-08-25 16:23] VITALS: BP 109/79
== END 2018-08-25 16:23 | disposition home or self-care (01) | DRG 251 ==
LOC: ED 16:19 → SSU 21:53 → OBSVTOIN 08-24 14:15 → INTOOBSV 08-24 16:03 → OBSVTOIN 08-24 16:03
PROVIDERS: ADMIT Surgery; ATTEND Surgery
DX: R10.31 Right lower quadrant pain (principal); M94.0 Chondrocostal junction syndrome [Tietze]; E04.1 Nontoxic single thyroid nodule; J45.909 Unspecified asthma, uncomplicated; G43.909 Migraine, unspecified, not intractable, without status migrainosus; F41.9 Anxiety disorder, unspecified; G89.29 Other chronic pain; R53.1 Weakness; D64.9 Anemia, unspecified; R11.2 Nausea with vomiting, unspecified; M54.9 Dorsalgia, unspecified; Z85.41 Personal history of malignant neoplasm of cervix uteri; Z98.51 Tubal ligation status; Z98.1 Arthrodesis status; Z90.49 Acquired absence of other specified parts of digestive tract; Z82.49 Family history of ischemic heart disease and other diseases of the circulatory system; Z83.3 Family history of diabetes mellitus; Z80.1 Family history of malignant neoplasm of trachea, bronchus and lung; Z80.8 Family history of malignant neoplasm of other organs or systems; Z81.4 Family history of other substance abuse and dependence; Z82.5 Family history of asthma and other chronic lower respiratory diseases; Z72.89 Other problems related to lifestyle; Z87.891 Personal history of nicotine dependence; Z56.0 Unemployment, unspecified
CPT/HCPCS: 36415; 71046; 76705; 76856; 80048; 80053; 83605; 83690; 84484; 84702; 85025; 85027; 85379; 86140; 93005; 93306; 99284; A9270-GY; J1170; J1885; J2270; J2405; J3480

== ENCOUNTER 2018-10-26 22:21 | Emergency (ER) | payer MEDICAID, OTHER ==
[2018-10-26] MEDS ORDERED: NS 0.9% 1000 ML** 1,000 ML IV ONE (22:57)
[2018-10-26] MEDS ORDERED: Ketorolac INJ* 30 MG/ML 1 ML VIAL IV PUSH ONE (23:01)
[2018-10-26] MEDS ORDERED: diPHENhydraMINE IV* 50 MG/ML 1 ml VIAL (BENADRYL) SLOW PUSH ONE (23:02)
[2018-10-26] MEDS ORDERED: Metoclopramide IV* 5 MG/ML 2 ML VIAL IV SLOW PU ONE (23:02)
[2018-10-26 23:30] LABS: ABS Basophils 0.1 10^3/ul (0-0.2); ABS Eosinophils 0.1 10^3/ul (0-0.6); ABS Lymphocytes 2.2 10^3/ul (1.0-4.8); ABS Monocytes 0.7 10^3/ul (0-0.8); ABS Neutrophils 5.5 10^3/ul (1.5-7.7); ABS Nucleated RBC 0 10^3/ul; Eosinophil % 1.7 %; Hematocrit 36 % (33-41); Hemoglobin 11.8 g/dL (12.0-16.0); Mean Corpuscular HGB Conc 33 g/dL (31-36); Mean Corpuscular Hemoglobin 30 pg (27-31); Mean Corpuscular Volume 90 fL (80-97); Mean Platelet Volume 9.3 fL (7.4-10.4); Nucleated Red Blood Cells % 0; Platelet Count 206 10^3/uL (150-450); Red Blood Count 3.98 10^6 /uL (3.70-4.87); Red Cell Distribution Width 13 % (10.5-15); White Blood Count 8.6 10^3/uL (3.5-10.8)
[2018-10-26 23:48] LABS: ALT 8 U/L (7-52); AST 12 U/L (13-39); Albumin 4.2 g/dL (3.2-5.2); Albumin/Globulin Ratio 1.8 (1-3); Alkaline Phosphatase 48 U/L (34-104); Anion Gap 8 mmol/L (2-11); BUN/Creatinine Ratio 18.2 (8-20); Blood Urea Nitrogen 16 mg/dL (6-24); CO2 Carbon Dioxide 27 mmol/L (22-32); Calcium 9.4 mg/dL (8.6-10.3); Chloride 106 mmol/L (101-111); EGFR African American 90.7 (>60); EGFR Non-African American 74.9 (>60); Globulin 2.4 g/dL (2-4); Glucose 96 mg/dL (70-100); Potassium 3.4 mmol/L (3.5-5.0); Sodium 141 mmol/L (135-145); Total Protein 6.6 g/dL (6.4-8.9)
[2018-10-26 23:54] LABS: HCG Pregnancy < 0.60 mIU/mL
[2018-10-27] MEDS ORDERED: Potassium Chlor TAB* 20 MEQ TAB.ER PO ONE (00:07)
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
[2018-10-27 01:14] VITALS: BP 101/64
== END 2018-10-27 01:05 | disposition home or self-care (01) ==
LOC: ED 22:21
DX: R51 Headache (principal); Z87.891 Personal history of nicotine dependence
CPT/HCPCS: 36415; 80053; 84702; 85025; 93005; 96361; 96374; 96375; 99283; J1200; J1885; J2765

== ENCOUNTER 2018-11-11 14:14 | Observation (INO) | payer OTHER ==
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
[2018-11-11] MEDS ORDERED: Ondansetron INJ* 2 MG/ML VIAL IV ONE (14:59)
[2018-11-11] MEDS ORDERED: LORazepam INJ* 2 MG/ML 1 ML VIAL IV PUSH ONE ×2 (14:59→16:11)
[2018-11-11] MEDS ORDERED: Lorazepam PYXIS KEY PRN ×3 (14:59→20:30)
[2018-11-11] MEDS: NS 0.9% 1000 ML** 2,000 ML IV ONE ×2 (15:07→15:24)
[2018-11-11 15:18] LABS: ABS Basophils 0.1 10^3/ul (0-0.2); ABS Eosinophils 0.1 10^3/ul (0-0.6); ABS Lymphocytes 2.7 10^3/ul (1.0-4.8); ABS Monocytes 0.9 10^3/ul (0-0.8); ABS Neutrophils 6.8 10^3/ul (1.5-7.7); Eosinophil % 1.1 %; Hematocrit 39 % (35-47); Lymphocyte % 25.5 %; Mean Corpuscular HGB Conc 33 g/dL (31-36); Mean Corpuscular Hemoglobin 29 pg (27-31); Mean Corpuscular Volume 88 fL (80-97); Mean Platelet Volume 9.5 fL (7.4-10.4); Platelet Count 241 10^3/uL (150-450); Red Blood Count 4.46 10^6 /uL (3.70-4.87); Red Cell Distribution Width 13 % (10.5-15); White Blood Count 10.6 10^3/uL (3.5-10.8)
[2018-11-11 15:30] LABS: ALT 48 U/L (7-52); AST 36 U/L (13-39); Albumin 4.7 g/dL (3.2-5.2); Albumin/Globulin Ratio 1.7 (1-3); Alkaline Phosphatase 67 U/L (34-104); Anion Gap 14 mmol/L (2-11); BUN/Creatinine Ratio 17.2 (8-20); Blood Urea Nitrogen 15 mg/dL (6-24); C Reactive Protein < 1.00 mg/L (<8.01); CO2 Carbon Dioxide 21 mmol/L (22-32); Calcium 10.3 mg/dL (8.6-10.3); Chloride 103 mmol/L (101-111); EGFR African American 91.9 (>60); EGFR Non-African American 75.9 (>60); Globulin 2.8 g/dL (2-4); Glucose 106 mg/dL (70-100); Potassium 3.6 mmol/L (3.5-5.0); Sodium 138 mmol/L (135-145); Total Protein 7.5 g/dL (6.4-8.9)
[2018-11-11 15:35] LABS: HCG Pregnancy < 0.60 mIU/mL
[2018-11-11] MEDS ORDERED: Metoclopramide IV* 5 MG/ML 2 ML VIAL IV SLOW PU ONE (15:43)
[2018-11-11] MEDS ORDERED: Haloperidol INJ IV/IM* 5 MG/ML AMP IV SLOW PU ONE (15:43)
[2018-11-11] MEDS ORDERED: Lidocaine 2% VISCOUS* 15 ML UDC PO ONE (17:38)
[2018-11-11] MEDS ORDERED: Al Hydrox/Mg Hydrox/Simet LIQ* 30 ML UDC PO ONE (17:38)
[2018-11-11] MEDS ORDERED: PROCHLORPERAZINE INJ 5 MG/ML 2 ML VIAL IV ONE (18:37)
[2018-11-11] MEDS ORDERED: LORazepam INJ* 2 MG/ML 1 ML VIAL IV PUSH PRN (20:30)
[2018-11-11] MEDS ORDERED: Morphine 4 MG/ML VIAL (1 ml) 4 MG/ML VIAL IV PRN (20:31)
[2018-11-11 21:41] LABS: Urine Appearance Clear; Urine Bilirubin Negative (Negative); Urine Blood Negative (Negative); Urine Color Yellow; Urine Glucose Negative (Negative); Urine Ketones 2+ (Negative); Urine Nitrite Negative (Negative); Urine Protein Negative (Negative); Urine Specific Gravity 1.018 (1.010-1.030); Urine Urobilinogen Negative (Negative)
[2018-11-11] MEDS: Ondansetron INJ* 2 MG/ML VIAL IV SCH (21:48)
[2018-11-11] MEDS: NS 0.9% w/ 20 Meq KCL 1000 ML* 1,000 ML IV SCH (22:24)
[2018-11-11 22:27] LABS: Urine Benzodiazepine Screen None Detected (None Detect); Urine Opiates Screen None Detected (None Detect)
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
[2018-11-11] MEDS: Pantoprazole IV* 40 MG IV SCH (23:14)
[2018-11-12] MEDS: Ondansetron INJ* 2 MG/ML VIAL IV SCH ×4 (02:45→12:57)
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
[2018-11-12 08:28] VITALS: BP 106/62
[2018-11-12] MEDS: NS 0.9% w/ 20 Meq KCL 1000 ML* 1,000 ML IV SCH (09:20)
[2018-11-12] MEDS ORDERED: PROCHLORPERAZINE INJ 5 MG/ML 2 ML VIAL IM PRN (09:33)
[2018-11-12] MEDS: Pantoprazole IV* 40 MG IV SCH (12:57)
--- NOTE | 2018-11-12 20:35 | DS ---
CC: Dr. Younger DISCHARGE SUMMARY: DATE OF ADMISSION: 11/11/18 DATE OF DISCHARGE: 11/12/18 PRIMARY CARE PROVIDER: Dr. Younger. DISPOSITION AT DISCHARGE: Stable to home. PRIMARY DIAGNOSIS: Intractable nausea with vomiting with presyncopal symptoms. SECONDARY DIAGNOSES: 1. History of migraines. 2. Anxiety. MEDICATIONS ON DISCHARGE: 1. Ondansetron 4 mg p.o. q.6 hours p.r.n. for nausea and vomiting. 2. Compazine 10 mg p.o. q.6 hours p.r.n. for nausea and vomiting. 3. Naproxen 500 mg p.o. b.i.d. p.r.n. for migraine-like symptoms. Medication changes on discharge include the addition of Compazine p.o. for nausea. HISTORY OF PRESENT ILLNESS AND HOSPITAL COURSE: This is a 33-year-old female with past medical histo ry significant for anxiety, migraines, distant history of substance use disorder, status post fusion of L5-S1 with chronic low back pain, who presented with acute onset nausea, vomiting, and diarrhea af ter eating at [employer] while she was working. In the emergency room, had an acute presyncopal symptom type episode, which she described as sweating, tunnel vision that was accompanied with nause a and 1 episode of diarrhea, then began with intractable nausea and vomiting requiring IV fluids and IV antiemetics to help control her symptoms. Her vital signs were stable in the emergency room, [facility] her labs did show a lactic acidosis with elevated lactate at 3.7. LFTs were unremarkable, lipase was unremarkable, beta hCG was flat, and CBC was unremarkable. The patient was admitted for [facility] and given IV fluids and supportive care. By hospital day 2, her symptoms had resolved with Zofra n, Compazine, and IV fluid rehydration, and she was tolerating a clear liquid diet. The patient has had similar episodes and presumed to be part of possible abdominal migraine or otherwise not specifie d syndrome and she continues to work with her primary care provider. HOSPITAL ITEMS TO FOLLOW UP WITH POST DISCHARGE: Recurrent nausea, vomiting and presyncopal type sym ptoms. The patient did have a similar episode in August of 2018. She had an echocardiogram, a D-d gracie, and troponins trended, and from a syncopal standpoint, had a negative rule out for ACS. She baldwin s not had a stress test and continues to complain of these intermittent chest squeezing or tightness episodes and has a strong positive family history, though we discussed it is probably unlikely true A CS given workup done in August. Nonetheless certainly can be considered for stress test in the fut ure if recurrent squeezing, midsternal chest pain accompanying with presyncopal symptoms continue to be a prodrome as part of her nausea and vomiting episodes. In regards to her nausea and vomiting alone, differential remains broad. She has not had EGD or form al GI consult as her symptoms rapidly resolve with fluids and supportive care, although this could be considered for further workup. She has had an appendix ultrasound done on 08/22/18 that was unremar kable, no findings of acute appendicitis. She also had a pelvis ultrasound done, which showed no adn exal masses and otherwise unremarkable pelvic ultrasound. A CT abdomen and pelvis, has not had a ded icated study, though the patient has not had a white count or any evidence of end organ damage and th us seems reasonable to hold at this time, could consider the possibility of EGD or scope in the futur e if the patient's symptoms begin to worsen or not responsive to treatment. She has a working diagno sis of possible abdominal migraine, though could also consider cyclic vomiting, gastroparesis and/or cannabinoid hyperemesis syndrome contributing. LABORATORY DATA: On day of discharge, lactic acid repeat is 1.6, sodium 138, potassium 3.6, chloride 103, carbon dioxide 21, creatinine 0.87, glucose 106. AST 36, ALT 48, alkaline phosphatase 67, and lipase less than 10. A UA was also done that was positive for ketones only. A tox screen was done, which showed only presumptive positive for cannabinoids and otherwise negative. PHYSICAL EXAMINATION: Vital Signs: At the time of discharge, blood pressure is 106/62, heart rate 6 2, respiratory rate 16, satting 99% on room air, the patient is afebrile. On the day of discharge, t he patient is a pleasant, well-appearing woman, in no acute distress. No abdominal tenderness. Regu lar rate and rhythm with no murmurs, rubs or gallops. Chest is clear to auscultation bilaterally and she has no pedal edema. DISCHARGE PLAN: The patient will be discharged to home. Will be given for 48 hours to contin ue and resume a BRAT diet. She is counseled to return to emergency room or call primary care provider if symptoms reoccur, and she is comfortable with continuing her workup for these episodes th at have been intermittent since August of 2018. Medication instructions are given to the patient, and she is comfortable with the plan and there are no further questions from her part. TIME SPENT: 30 minutes were spent on the planning of this discharge with over half of that spent dir ectly at the bedside of the patient providing direct patient care. Once again, plan of care was discussed with the patient and plan to see her primary care provider and ongoing workup and she is reassured that her symptoms improved so quickly with supportive care. [place] jara education was given on presyncopal symptoms and how to avoid them. [id number]/[facility] #: [id number]
== END 2018-11-12 14:45 | disposition home or self-care (01) ==
LOC: ED 14:14 → MED 20:27
PROVIDERS: ADMIT Internal Medicine; ATTEND Internal Medicine
DX: R11.2 Nausea with vomiting, unspecified (principal); R55 Syncope and collapse; G43.909 Migraine, unspecified, not intractable, without status migrainosus; F41.9 Anxiety disorder, unspecified; M54.5 Low back pain; R19.7 Diarrhea, unspecified; I31.9 Disease of pericardium, unspecified; R53.1 Weakness; Z87.891 Personal history of nicotine dependence; R07.9 Chest pain, unspecified; R42 Dizziness and giddiness; M94.0 Chondrocostal junction syndrome [Tietze]
CPT/HCPCS: 36415; 80053; 80307; 81003; 83605; 83690; 84702; 85025; 86140; 93005; 96361; 96374; 96375; 96376; 99284; A9270-GY; G0378; J0780; J1630; J2060; J2270; J2405; J2765

== ENCOUNTER 2018-12-06 16:36 | Emergency (ER) | payer OTHER ==
[2018-12-06 16:48] VITALS: BP 110/64
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
== END 2018-12-06 18:35 | disposition home or self-care (01) ==
LOC: UCEAST 16:36
DX: M54.5 Low back pain (principal); M79.605 Pain in left leg; R53.1 Weakness; R20.0 Anesthesia of skin; Z87.828 Personal history of other (healed) physical injury and trauma; Z87.891 Personal history of nicotine dependence
CPT/HCPCS: 99212; G0463

== ENCOUNTER 2018-12-17 23:15 | Emergency (ER) | payer OTHER ==
[2018-12-17] MEDS ORDERED: Famotidine TAB* 20 MG PO ONE (23:31)
[2018-12-17] MEDS ORDERED: Al Hydrox/Mg Hydrox/Simet LIQ* 30 ML UDC PO ONE (23:31)
[2018-12-17] MEDS ORDERED: NS 0.9% 1000 ML** 1,000 ML IV ONE (23:31)
[2018-12-17] MEDS ORDERED: Ondansetron INJ* 2 MG/ML VIAL IV ONE (23:31)
[2018-12-17] MEDS ORDERED: Haloperidol INJ IV/IM* 5 MG/ML AMP IV SLOW PU ONE (23:32)
[2018-12-17] MEDS ORDERED: diPHENhydraMINE IV* 50 MG/ML 1 ml VIAL (BENADRYL) IV ONE (23:32)
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
[2018-12-17 23:59] LABS: ABS Lymphocytes 0.8 10^3/ul (1.0-4.8); ABS Monocytes 0.8 10^3/ul (0-0.8); Eosinophil % 0.1 %; Hematocrit 40 % (35-47); Hemoglobin 13.3 g/dL (12.0-16.0); Lymphocyte % 4.2 %; Mean Corpuscular HGB Conc 33 g/dL (31-36); Mean Corpuscular Hemoglobin 29 pg (27-31); Mean Corpuscular Volume 88 fL (80-97); Mean Platelet Volume 9.3 fL (7.4-10.4); Platelet Count 243 10^3/uL (150-450); Red Blood Count 4.59 10^6 /uL (3.70-4.87); Red Cell Distribution Width 13 % (10-15); White Blood Count 19.7 10^3/uL (3.5-10.8)
[2018-12-18 00:16] LABS: ALT 15 U/L (7-52); AST 17 U/L (13-39); Albumin 4.8 g/dL (3.2-5.2); Albumin/Globulin Ratio 1.7 (1-3); Alkaline Phosphatase 58 U/L (34-104); Anion Gap 14 mmol/L (2-11); BUN/Creatinine Ratio 20.5 (8-20); Blood Urea Nitrogen 17 mg/dL (6-24); C Reactive Protein 3.78 mg/L (<8.01); CO2 Carbon Dioxide 21 mmol/L (22-32); Calcium 10.2 mg/dL (8.6-10.3); Chloride 101 mmol/L (101-111); EGFR Non-African American 80.2 (>60); Globulin 2.8 g/dL (2-4); Glucose 143 mg/dL (70-100); Potassium 3.6 mmol/L (3.5-5.0); Sodium 136 mmol/L (135-145); Total Protein 7.6 g/dL (6.4-8.9)
[2018-12-18 00:22] LABS: HCG Pregnancy < 0.60 mIU/mL
[2018-12-18] MEDS ORDERED: NS 0.9% 1000 ML** 1,000 ML IV ONE (02:08)
[2018-12-18] MEDS ORDERED: Metoclopramide IV* 5 MG/ML 2 ML VIAL IV ONE (02:08)
[2018-12-18 03:02] VITALS: BP 114/69
== END 2018-12-18 03:00 | disposition home or self-care (01) ==
LOC: ED 23:15
DX: F12.988 Cannabis use, unspecified with other cannabis-induced disorder (principal); R11.2 Nausea with vomiting, unspecified; Z87.891 Personal history of nicotine dependence; E87.2 Acidosis
CPT/HCPCS: 36415; 80053; 83605; 83690; 84702; 85025; 86140; 96374; 96375; 99285; A9270-GY; J1200; J1630; J2765

== ENCOUNTER 2019-06-03 10:55 | Emergency (ER) | payer OTHER ==
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
[2019-06-03 12:33] VITALS: BP 110/75
== END 2019-06-03 12:32 | disposition home or self-care (01) ==
LOC: ED 10:55
DX: S63.501A Unspecified sprain of right wrist, initial encounter (principal); W10.9XXA Fall (on) (from) unspecified stairs and steps, initial encounter; Y92.9 Unspecified place or not applicable; J45.909 Unspecified asthma, uncomplicated; Z90.49 Acquired absence of other specified parts of digestive tract; Z98.51 Tubal ligation status; Z87.891 Personal history of nicotine dependence
CPT/HCPCS: 99282

== ENCOUNTER 2019-06-05 13:38 | Emergency (ER) | payer OTHER ==
[2019-06-05 13:47] VITALS: BP 97/59
--- NOTE | 2019-06-05 13:59 | UC ---
Eye Complaint HPI - HPI Summary HPI Summary: 34 year old female with NO pMH, does not wear contacts, presents with itchy eyes with "crusting" over in AM, feels like film is over eyes, clears with blinking but returns. No FB potential. [place] s/s were maybe a result of her wood stove, but s/s continued. Denies other symptoms, no signs of URI. + boyfriend, + daughter with bacterial conjunctivitis at home. - History of Current Complaint Chief Complaint: UCEye Stated Complaint: EYE ISSUE Time Seen by Provider: 06/05/19 13:59 Hx Obtained From: Patient Hx Last Menstrual Period: now ?: No Onset/Duration: Sudden Onset Timing: Constant Severity Initially: Moderate Severity Currently: Moderate Pain Intensity: 2 Pain Scale Used: 0-10 Numeric Location of Injury: Conjunctiva Associated Signs And Symptoms: Positive: Photophobia, Drainage (Purulent). Negative: Vision Impairment Bilateral, Vision Impairment Right, Vision Impairment Left, Fever, Swelling - Allergies/Home Medications Allergies/Adverse Reactions: Allergies Allergy/AdvReac Type Severity Reaction Status Date / Time No Known Allergies Allergy Verified 06/05/19 13:47 PMH/Surg Hx/FS Hx/Imm Hx Previously Healthy: Yes Other History Of: Negative For: HIV, Hepatitis B, Hepatitis C, Anticoagulant Therapy - Surgical History Surgical History: Yes Surgery Procedure, Year, and Place: D&C [place]. right inguinal hernia 2014. [place] [facility] [place]. SPINAL FUSION L5/S1 2011 [place]. CHOLECYSTECTOMY 2017 - Family History Known Family History: Positive: Cardiac Disease, Hypertension - Father, Diabetes - Father, Respiratory Disease - COPD, Other - [place] - mouth, throat and lung; substance abuse - Social History Occupation: Employed Full-time Alcohol Use: Occasionally Substance Use Type: None Substance Use Comment - Amount & Last Used: occasionally Smoking Status (MU): Former Smoker Have You Smoked in the Last Year: No Household Exposure Type: Cigarettes - Immunization History Most Recent Influenza Vaccination: no Most Recent Pneumonia Vaccination: none Review of Systems All Other Systems Reviewed And Are Negative: Yes Constitutional: Negative: Fever, Chills Eyes: Positive: Drainage, Eye Redness, Photophobia - baseline. Negative: Blurred Vision, Diplopia Gastrointestinal: Positive: Negative Is Patient Immunocompromised?: No Physical Exam Triage Information Reviewed: Yes Appearance: Well-Appearing, No Pain Distress, Well-Nourished Vital Signs: Initial Vital Signs Temp 97.1 F 06/05/19 13:43 Pulse 72 06/05/19 13:43 Resp 20 06/05/19 13:43 BP 97/59 06/05/19 13:43 Pulse Ox 100 06/05/19 13:43 Vital Signs Reviewed: Yes Eyes: Positive: Conjunctiva Inflamed - b/l, Discharge - watery b/l, Other: - EMOI, PERRLA ENT: Positive: Hearing grossly normal, Pharynx normal, TMs normal, Uvula midline. Negative: Pharyngeal erythema, Tonsillar swelling, Tonsillar exudate, Sinus tenderness Neck: Positive: Supple, Nontender, No Lymphadenopathy. Negative: Nuchal Rigidity, Enlarged Nodes @ Psychological Exam: Normal Skin Exam: Normal Eye Complaint Course/Dx - Course Course Of Treatment: Conjunctivitis: - Eye drops every 3 hours as directed x 5 days - If no improvement within 3-4 days, follow up with ophthamologist for further evaluation - Increased hand hygiene as discussed - Over the counter eye drops as needed, only Natural Tears/ Saline drops - Return with vision changes, pain. - Differential Dx/Diagnosis Differential Diagnosis/HQI/PQRI: Periorbital Cellulitis, Uveitis Provider Diagnosis: Conjunctivitis, acute, bilateral Discharge ED - Sign-Out/Discharge Documenting (check all that apply): Patient Departure All imaging exams completed and their final reports reviewed: No Studies - Discharge Plan Condition: Good Disposition: HOME Prescriptions: Sulfacetamide Sodium [Bleph-10] 2 drop OPHTHALMIC Q3HR #1 bottle Patient Education Materials: Conjunctivitis (ED) Referrals: No Primary Care Phys,NOPCP [Primary Care Provider] - [facility] [Outside] Additional Instructions: Conjunctivitis: - Eye drops every 3 hours as directed x 5 days - If no improvement within 3-4 days, follow up with ophthamologist for further evaluation - Increased hand hygiene as discussed - Over the counter eye drops as needed, only Natural Tears/ Saline drops - Return with vision changes, pain. - Billing Disposition and Condition Condition: GOOD Disposition: Home
== END 2019-06-05 14:21 | disposition home or self-care (01) ==
LOC: UCEAST 13:38
DX: H10.33 Unspecified acute conjunctivitis, bilateral (principal); H53.143 Visual discomfort, bilateral; Z87.891 Personal history of nicotine dependence
CPT/HCPCS: 99212; G0463

== ENCOUNTER 2019-06-11 09:39 | Emergency (ER) | payer OTHER ==
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
[2019-06-11] MEDS ORDERED: Ketorolac *IM* INJ* 60 MG/2 ML VIAL IM ONE (11:01)
[2019-06-11 11:48] VITALS: BP 118/83
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
--- OUTSIDE RECORDS SUMMARY | 2019-06-13 16:00 | XMS REPORT | Continuity of Care Document ---
:1985 External Reference #:[id number] Author Name Ted Collins M.D. 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 Appraiser Unavailable Problems Description No Information Available Social History Type Date Description Comments Sex Unknown ETOH Use Denies alcohol use Tobacco Use Start: Unknown Patient has never smoked Smoking Status Reviewed: 06/05/19 Patient has never smoked Exercise Type/Frequency Exercises regularly Allergies, Adverse Reactions, Alerts Description No Known Drug Allergies Medications Description No Active Medications Immunizations Description No Information Available Vital Signs Date Vital Result Comment 06/05/2019 3:21pm Height 69 inches 5'9" Weight 152.75 lb Heart Rate 68 /min BP Systolic 116 mmHg BP Diastolic 70 mmHg Respiratory Rate 16 /min Body Temperature 98.2 F Pain Level 10 BMI (Body Mass Index) 22.6 kg/m2 Results Description No Information Available Procedures Description No Information Available Medical Devices Description No Information Available Encounters Description No Information Available Assessments Date Code Description Provider 06/05/2019 S63.8x1A Sprain of other part of right wrist and hand, Ted Collins M.D. initial encounter 06/05/2019 S43.401A Unspecified sprain of right shoulder joint, Ted Collins M.D. initial encounter Plan of Treatment Future Appointment(s):06/19/2019 3:30 pm - Ted Collins M.D. at [facility]/05/2019 - Ted Collins M.D.S63.8x1A Sprain of other part of right wrist and hand, initial encounterFollow up:Follow up: 2-3 weeks Use the sling and wrist brace Both off for heat (shower) and gentle movements of the shoulder, shoulder blades, right arm, elbow, forearm, wrist and hand. Light use right hand. OK to use tylenol and advil as ewllkcS79.401A Unspecified sprain of right shoulder joint, initial encounter Functional Status Description No Information Available Mental Status Description No Information Available Referrals Description No Information Available
== END 2019-06-11 11:45 | disposition home or self-care (01) ==
LOC: ED 09:39
DX: S06.0X9A Concussion with loss of consciousness of unspecified duration, initial encounter (principal); Y04.2XXA Assault by strike against or bumped into by another person, initial encounter; Y92.9 Unspecified place or not applicable; F41.9 Anxiety disorder, unspecified; Z98.1 Arthrodesis status; Z90.49 Acquired absence of other specified parts of digestive tract; Z87.891 Personal history of nicotine dependence
CPT/HCPCS: 70450; 70486; 96372; 99282; J1885

== ENCOUNTER 2019-09-08 13:02 | Emergency (ER) | payer OTHER ==
--- OUTSIDE RECORDS SUMMARY | 2019-09-08 13:07 | XMS REPORT | Summary of Care ---
:1985 Author Organization [facility] Address [address] [place] [id number] Care Team Providers Name Role Phone Sonia Magdi Keita Primary Care Provider Reason for Referral Diagnostic Testing (Routine) Status Reason Specialty Diagnoses / Referred By Referred To Procedures Contact Contact Pending Review Diagnoses Chest pain, unspecified type SOB (shortness of breath) Malachi, Procedures EXERCISE STRESS TEST W/TREADMILL MD Jayjay [address] [place] [address] Reason for Visit Reason Comments New Patient Pt. is a Self Referral. Reports having exertional Chest Pain, radiates and associated with Shortness of Breath. Encounter Details Date Type Department Care Team Description 07/26/2019 Office Visit Karen Hurtado Jewelltic, Chest pain, unspecified type (Primary Dx); Cardiology MD Jayjay SOB (shortness of breath); [facility] [address] Pericarditis, unspecified chronicity, unspecified type; [place] [address] Palpitations [phone] Allergies No Known Allergiesdocumented as of this encounter (statuses as of 07/26/2019) Medications Medication Sig Dispensed Refills Start Date End Date Status Ibuprofen 200 MG Oral Take by mouth. 0 Active Cap colchicine (COLSALIDE) Take 1 Tab by 180 Tab 0 07/26/2019 Active 0.6 MG Oral mouth TWICE TabIndications: Chest DAILY. pain, unspecified type, Pericarditis, unspecified chronicity, unspecified type documented as of this encounter (statuses as of 07/26/2019) Active Problems Problem Noted Date Hx of opioid abuse 11/01/2018 Hx of cocaine abuse 11/01/2018 Status post cholecystectomy 11/01/2018 S/P appendectomy 11/01/2018 H/O hernia repair 11/01/2018 Tubal ligation status 11/01/2018 documented as of this encounter (statuses as of 07/26/2019) Social History Tobacco Use Types Packs/Day Years Used Date Current Every Day Smoker Cigarettes Smokeless Tobacco: Never Used Alcohol Use Drinks/Week oz/Week Comments Yes occasional Sex Assigned at Date Recorded Not on file Job Start Date Occupation Industry Not on file Not on file Not on file Travel History Travel Start Travel End No recent travel history available. documented as of this encounter Last Filed Vital Signs Vital Sign Reading Time Taken Comments Blood Pressure 100/62 07/26/2019 1:40 PM EST Pulse 88 07/26/2019 1:40 PM EST Temperature - - Respiratory Rate - - Oxygen Saturation - - Inhaled Oxygen Concentration - - Weight 65.8 kg (145 lb) 07/26/2019 1:40 PM EST Height 172.7 cm (5' 8") 07/26/2019 1:40 PM EST Body Mass Index 22.05 07/26/2019 1:40 PM EST documented in this encounter Patient Instructions Patient InstructionsMcJayjay Brothers MD - 07/26/2019 1:40 PM EST START taking colchicine 0.6mg twice daily. No other medication changes today. Schedule a stress test sometime in the next couple of months. Follow up with me in 2-3 months. documented in this encounter Progress Notes Jayjay Ly MD - 07/26/2019 1:40 PM EST [place] [facility] Note Patient: Francia Wells Date of : 1985 Date of Service: 07/26/2019 REFERRING PRACTITIONER: Self-Referred PRIMARY CARE PROVIDER: Magdi Scott Chief Complaint: Chief Complaint Patient presents with New Patient Pt. is a Self Referral. Reports having exertional Chest Pain, radiates and associated with Shortness of Breath. History of Present Illness: We had the pleasure of seeing Francia Wells today at the [facility] Cardiology Office. She is a 34-y.o. female with a history of prior pericarditis ~2010 as well as ongoing CP. Ms. Wells presents to cardiology clinic today for further evaluation of chest pain and dyspnea. She says that over the past 6-8 months she's been experiencing increased chest pains. These start in her mid chest and radiate to her mid back and L arm. Pain is often pleuritic and she's gone to the ER multiple times at both [facility] and [facility] without any clear cardiac diagnosis. Lying down makes the pain worse and it can last 5-20 minutes at a time. Onset of pain is random; sometimes occurs with anxiety or exertion but not always associated with exertion. Gets the pain about once weekly and it seems to be increasing in frequency. She was diagnosed with pericarditis about 9 years ago and had a course of ibuprofen at that time. Can climb a flight of stairs without dyspnea but will notice her heart racing. No resting palpitations. Does get lightheadedness with standing quickly but no recent syncope. No orthopnea, paroxysmaldyspnea, or lower extremity edema. Patient Active Problem List Diagnosis Hx of opioid abuse (HCC) Hx of cocaine abuse (HCC) Status post cholecystectomy S/P appendectomy H/O hernia repair Tubal ligation status Past Medical History: Diagnosis Date Pericarditis Past Surgical History: Procedure Laterality Date DILATATION AND CURETTAGE LAPAROSCOPIC TUBAL LIGATION REPAIR INITIAL INGUINAL HERNIA, SPINAL FUSION No Known Allergies Current Outpatient Medications Medication Sig colchicine (COLSALIDE) 0.6 MG Oral Tab Take 1 Tab by mouth TWICE DAILY. Ibuprofen 200 MG Oral Cap Take by mouth. No current facility-administered medications for this visit. Family History Problem Relation Age of Onset Thyroid Mother Kidney Disease Father Liver Disease Father COPD Father Diabetes Father Heart Paternal Grandmother Social History Socioeconomic History Marital status: Single Spouse name: Not on file Number of children: Not on file Years of education: Not on file Highest education level: Not on file Occupational History Not on file Social Needs Financial resource strain: Not on file Food insecurity Worry: Not on file Inability: Not on file Transportation needs Medical: Not on file Non-medical: Not on file Tobacco Use Smoking status: Current Every Day Smoker Types: Cigarettes Smokeless tobacco: Never Used Substance and Sexual Activity Alcohol use: Yes Comment: occasional Drug use: Yes Types: Marijuana Sexual activity: Not on file Lifestyle Physical activity Days per week: Not on file Minutes per session: Not on file Stress: Not on file Relationships Social connections Talks on phone: Not on file Gets together: Not on file Attends synagogue service: Not on file Active member of club or organization: Not on file Attends meetings of clubs or organizations: Not on file Relationship status: Not on file Intimate partner violence Fear of current or ex partner: Not on file Emotionally abused: Not on file Physically abused: Not on file Forced sexual activity: Not on file Other Topics Concern Not on file Social History Narrative Not on file Nursing Notes: Alesha Vilchis LPN 07/26/2019 1:49 PM Signed PATIENT: Francia Wells : 1985 DATE OF SERVICE: 07/26/2019 CARDIOLOGY AMBULATORY NURSING INTAKE FORM HISTORY COLLECTED BY CLINICAL STAFF: ALEE REVIEW OF SYSTEMS: GENERAL: Fever: no Weight loss/gain: no Fatigue: no Recent febrile illness: no NEUROLOGIC: Headache: Yes head trauma in Nov Syncope: yes - lightheaded with movement CVA/TIA: no Change in sensation: no CARDIOVASCULAR: Chest Pain: yes - with exertion/SOB Palpitations: no Orthopnea: no Rheumatic Fever (history of): no Edema: no RESPIRATORY: Cough: no Shortness Of Breath: yes - with chest pain Hemoptysis: no Underlying Lung Disease: yes - asthma GASTROINTESTINAL: Nausea: no Vomiting: no Constipation: no Diarrhea: no Melena: no PUD (history of): no Hematemesis: no Gastrointestinal Disorder: no GENITOURINARY: Hematuria: no Urinary Tract Infection(s): no Nocturia: no Prostate Problem(s): no HEMATOLOGIC: Easy bruising: no Bleeding: no MUSCULOSKELETAL/PERIPHERAL VASCULAR SYSTEM: Muscle Pain: no Muscle Cramping: yes - calves Stiffness: no Muscle Weakness: no BEHAVIORAL/PSYCH: Depression: no ENDOCRINE: Tremors: no Heat or cold intolerance: no Author: Alesha Vilchis LPN 07/26/2019 13:45 I have reviewed the ROS obtained by my nurse and concur as detailed above. Physical Exam: Vitals: 07/26/19 1340 BP: 100/62 Pulse: 88 Weight: 145 lb (65.8 kg) Height: 5' 8" (1.727 m) Body mass index is 22.05 kg/m. General: Well nourished, alert 34-y.o. female in NAD HEENT: anicteric, MMM, no E/E OP, conj pink Neck: JVP approx 4 cm above RA, no carotid bruits or LAD CV: RRR, normal s1/s2, no appreciable murmurs, rubs, or gallops Pulm: CTA bilaterally without wheezes, rhonchi, or rales. No increased work of breathing. Abd: soft, NT, ND, +BS. No appreciable pulsatile masses or bruits. Ext: no lower extremity edema, no cyanosis, no cords, redness, or warmth, 2+ distal pulses Neuro: no gross focal deficits Skin: Tattoos noted. Labs: No results found for: NA, K, CL, CO2, GLUCOSE, BUN, CREATININE, CALCIUM, TP, ALBUMIN, AST, ALT, ALK,TBILI, EGFR No results found for: BNP No results found for: CHOL, TRIG, HDL, LDL, LDLHDLRATIO, CHOLHDLRATIO Cardiac Studies: EKG Today (I personally reviewed): NSR in 80s. Normal EKG. TTE at [facility] 08/23/2018: -Normal LV size/function; LVEF 55-60% -No significant valvular disease -No pericardial effusion. Assessment & Plan: Francia Wells is a 34-y.o. female with a history of prior pericarditis ~2010 as well as ongoing CP. ICD-9-CM ICD-10-CM 1. Chest pain, unspecified type 786.50 R07.9 AMBULATORY 12 LEAD EKG (GLOBAL) EXERCISE STRESS TEST W/TREADMILL colchicine (COLSALIDE) 0.6 MG Oral Tab 2. SOB (shortness of breath) 786.05 R06.02 EXERCISE STRESS TEST W/TREADMILL 3. Pericarditis, unspecified chronicity, unspecified type 423.9 I31.9 colchicine (COLSALIDE) 0.6 MG Oral Tab 4. Palpitations 785.1 R00.2 1. Chest Pain: The quality of patient's CP (pleuritic, worse supine and better upright) sounds consistent with recurrent pericarditis. However, her episodes are more brief that I would expect for that. CP is not reproducible to palpation. I explained to her that the quality of her pain is not ischemic, and that given her history of pericarditis it's possible that she has been having some recurrentepisodes. Will proceed as follows: I'm giving her an empiric trial of colchicine 0.6mg BID for 3 months to see if that lessens herCP symptoms. If so, then I think we can proceed with a presumptive diagnosis of recurrent pericarditis and treat and work that up accordingly. If the colchicine doesn't help, then it may be useful to consider a chest CTA to r/o PEs and other pleural based causes of her pain. 2. Palpitations: Gets tachycardic with minimal exertion. I suspect this is just related to deconditioning (hasn't done much exercise since some head trauma a few months ago), but at her request we'll pursue an ETT to ensure she has no exercise-induced arrhythmias. Thank you for allowing me to participate in the care of Francia Wells. We will plan on f/u in our office in ~3 months or sooner prn. If you have any questions or concerns please feel free to call our office at . Jayjay Ly MD, 07/26/2019, 14:20 documented in this encounter Plan of Treatment Date Type Specialty Care Team Description 08/07/2019 Orders Only Cardiology 09/27/2019 Office Visit Cardiology Jayjay Ly MD [address] [place] [address] [phone] Name Type Priority Associated Diagnoses Order Schedule AMBULATORY 12 LEAD EKG EKG Routine Chest pain, unspecified Ordered: 2019 (GLOBAL) type EXERCISE STRESS TEST CV Lab Routine Chest pain, unspecified Expected: 07/26, W/TREADMILL type Expires: 08/29/2020 SOB (shortness of breath) Health Maintenance Due Date Last Done Comments PNEUMOCOCCAL 0-64 YRS (1 of 1 - 1993 PPSV23) DTaP/Tdap/Td Vaccines (1 - Tdap) 1998 PAP SMEAR 02/22/2008 INFLUENZA VACCINE (#1) 2019 DEPRESSION SCREENING 06/13/2020 06/13/2019 HEPATITIS A IMMUNIZATION SERIES Aged Out No longer eligible based on patient's age to complete this topic HPV IMMUNIZATION SERIES Aged Out No longer eligible based on patient's age to complete this topic MENINGOCOCCAL VACCINE IMM Aged Out No longer eligible based on patient's age to complete this topic documented as of this encounter Results Not on filedocumented in this encounter Visit Diagnoses Diagnosis Chest pain, unspecified type SOB (shortness of breath) Shortness of breath Pericarditis, unspecified chronicity, unspecified type Palpitations documented in this encounter documented as of this encounter
--- OUTSIDE RECORDS SUMMARY | 2019-09-08 13:07 | XMS REPORT | Continuity of Care Document ---
:1985 External Reference #:[id number] Author Name Yonas Segura M.D. Address [address] [place] [address] Care Team Providers Name Role Phone Lucille Dooley PA-C - Physician Care Team Information Stem Setter Gate Person Lucille Dooley PA-C - Physician Care Team Information Stem Setter Gate Person Problems Active Problems Provider Date Visual field defect Yonas Segura M.D. Onset: 06/15/2019 Social History Type Date Description Comments Sex Unknown ETOH Use Occasionally consumes alcohol Recreational Drug Use Denies Drug Use Tobacco Use Start: Unknown Patient has never smoked Smoking Status Reviewed: 08/02/19 Patient has never smoked Allergies, Adverse Reactions, Alerts Active Allergies Reaction Severity Comments Date Seasonal Severe 08/02/2019 Medications Active Medications SIG Qnty Indications Ordering Provider Date Ibuprofen 200 as needed - Unknown 200mg 600-800mg Tablets Immunizations Description No Information Available Vital Signs Description No Information Available Results Description No Information Available Procedures Date Code Description Status 08/02/2019 76008 Scanning Computerized Opthalmic Diagnostic Posterior Seg Completed Retina 08/02/2019 27504 Est Patient Intermediate Exam Completed 06/15/2019 62489 Visual Field Exam Extended Completed 06/15/2019 83467 New Patient Comprehensive Exam Completed Medical Devices Description No Information Available Encounters Description No Information Available Assessments Date Code Description Provider 08/02/2019 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 08/02/2019 W22.8xxD Striking against or struck by other Yonas Segura M.D. objects, subsequent encounter 08/02/2019 H53.452 Other localized visual field defect, left Yonas Segura M.D. eye 08/02/2019 F07.81 Postconcussional syndrome Yonas Segura M.D. 06/15/2019 W22.8xxA Striking against or struck by other Yonas Segura M.D. objects, initial encounter 06/15/2019 H53.452 Other localized visual field defect, left Yonas Segura M.D. eye 06/15/2019 F07.81 Postconcussional syndrome Yonas Segura M.D. Plan of Treatment Future Appointment(s):10/31/2019 11:00 am - Yonas Segura M.D. at [facility] Kellogg MD, 08/02/2019 - Yonas Segura M.D.S04.012S Injury of optic nerve, left eye, sequelaComments:I WILL ORDER A CT SCAN TO LOOK SPECIFICALLY AT THE BONES AROUND THE LEFT EYE TO LOOK FOR A CAUSE FORTHE DECREASED VISIONFollow up: 3 Month Follow Up VISION CHECK At your next visit, we are not planning to dilate your eyes. However, if you have any changes in your vision or new symptoms, there are certain situations that require us to dilate your eyes. If Dr. Segura requests any additional testing, that may require extra time. If you have any questions before your next appointment, please call our office at [phone].W22.8xxD Striking against or struck by other objects, subsequent encounterComments:Smoking can increase the risk of developing or worsening any eye related disease, as well as affect your overall health. If you are a smoker , we strongly recommend that you quit.If you are not a smoker, we strongly recommend that you do not start.H53.452 Other localized visual field defect, left eyeComments:You have a visual field defect in your left eye. Further testing is often required to properly diagnose the cause of this. Please follow all of Dr. Segura's instructions and keep all follow up appointments.F07.81 Postconcussional syndrome Functional Status Description No Information Available Mental Status Description No Information Available Referrals Description No Information Available
--- OUTSIDE RECORDS SUMMARY | 2019-09-08 13:07 | XMS REPORT | Continuity of Care Document ---
:1985 External Reference #:[id number] Author Name Yonas Segura M.D. Address [address] [place] [address] Care Team Providers Name Role Phone Lucille Dooley PA-C - Physician Care Team Information Duct Layer Helper Certified Orthotic Fitter Lucille Dooley PA-C - Physician Care Team Information Duct Layer Helper Certified Orthotic Fitter Problems Active Problems Provider Date Visual field [...] Available Procedures Date Code Description Status 08/02/2019 00984 Scanning Computerized Opthalmic Diagnostic Posterior Seg Completed Retina 08/02/2019 52440 Est Patient Intermediate Exam Completed 06/15/2019 80915 Visual Field Exam Extended Completed 06/15/2019 42061 New Patient Comprehensive Exam Completed Medical Devices [...] next appointment, please call our office at .W22.8xxD Striking against or struck by other objects, [...]
--- OUTSIDE RECORDS SUMMARY | 2019-09-08 13:07 | XMS REPORT | Continuity of Care Document ---
:1985 External Reference #:[id number] Author Name Yonas Segura M.D. 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 Plan of Treatment 08/02/2019 - Yonas Segura M.D.S04.012S Injury of optic nerve, left eye, sequelaNew Xrays:CT Orbit/Sella/PF/Complete Ear W/O Contrast, Ordered: Comments:I WILL ORDER A CT SCAN TO LOOK SPECIFICALLY AT THE BONES AROUND THE LEFT EYE TO LOOK FOR A CAUSE FORTHE DECREASED VISIONFollow up:3 Month Follow Up VISION CHECK At your [...]
[2019-09-08 14:08] VITALS: BP 107/77
[2019-09-08] MEDS ORDERED: Penicillin G Benzathine 1.2MU* 1,200,000 UNITS/2 ML SYR IM ONE (14:26)
--- NOTE | 2019-09-08 14:28 | UC ---
Throat Pain/Nasal Homar HPI - HPI Summary HPI Summary: SEVERAL DAYS OF SORE THROAT AND PAIN WITH SWALLOWING. PAIN RADIATING UP INTO RIGHT EAR. HAS SUBJECTIVE FEVER AND CHILLS. MILD COUGH. - History of Current Complaint Chief Complaint: UCRespiratory Stated Complaint: THROAT PAIN Time Seen by Provider: 09/08/19 14:21 Hx Obtained From: Patient Hx Last Menstrual Period: 09/08/19 Onset/Duration: Gradual Onset, Lasting Days, Still Present Severity: Moderate Pain Intensity: 5 Pain Scale Used: 0-10 Numeric Cough: Nonproductive - Allergies/Home Medications Allergies/Adverse Reactions: Allergies Allergy/AdvReac Type Severity Reaction Status Date / Time No Known Allergies Allergy Verified 09/08/19 13:56 Home Medications: Home Medications Ibuprofen TAB* [Motrin TAB* 800 MG] 800 mg PO Q6HR PRN 12/06/18 [History Confirmed 09/08/19] Colchicine [Mitigare] 1 tab PO BID 09/08/19 [History Confirmed 09/08/19] Magic Mouth Was-LEYLA/MAAL/LIDO* 5 - 10 ml SWISH SWAL QID PRN #150 ml 09/08/19 [Rx ] PMH/Surg Hx/FS Hx/Imm Hx Respiratory History: Asthma Cancer History: Cervical Cancer Other History Of: Negative For: HIV, Hepatitis B, Hepatitis C, Anticoagulant Therapy - Surgical History Surgical History: Yes Surgery Procedure, Year, and Place: [facility]. right inguinal hernia 2014. TUBAL LIGATION [facility] 2008. SPINAL FUSION L5/S1 2011 [place]. CHOLECYSTECTOMY 2017 - Family History Known Family History: Positive: Cardiac Disease, Hypertension - Father, Diabetes - Father, Respiratory Disease - COPD, Other - CA - mouth, throat and lung; substance abuse - Social History Alcohol Use: Occasionally Substance Use Type: Marijuana Substance Use Comment - Amount & Last Used: occasionally Smoking Status (MU): Former Smoker Have You Smoked in the Last Year: No Household Exposure Type: Cigarettes - Immunization History Most Recent Influenza Vaccination: no Most Recent Pneumonia Vaccination: none Review of Systems All Other Systems Reviewed And Are Negative: Yes Constitutional: Positive: Fever - SUBJECTIVE, Chills, Fatigue ENT: Positive: Sore Throat Respiratory: Positive: Cough Cardiovascular: Positive: Negative Gastrointestinal: Positive: Negative Physical Exam Triage Information Reviewed: Yes Appearance: Well-Appearing, No Pain Distress, Well-Nourished Vital Signs: Initial Vital Signs Temp 97.8 F 09/08/19 13:52 Pulse 88 09/08/19 13:52 Resp 18 09/08/19 13:52 BP 107/77 09/08/19 13:52 Pulse Ox 100 09/08/19 13:52 Laboratory Tests 09/08/19 14:07 Group A Strep Rapid Positive H Vital Signs Reviewed: Yes Eyes: Positive: Conjunctiva Clear ENT: Positive: Hearing grossly normal, Pharyngeal erythema, TMs normal, Tonsillar swelling. Negative: Tonsillar exudate Neck: Positive: Supple, Tenderness @ - ANTERIOR CERVICAL LAD, Enlarged Nodes @ - ANTERIOR CERVICAL LAD Respiratory Exam: Normal Cardiovascular Exam: Normal Abdomen Description: Positive: Soft Musculoskeletal: Positive: No Edema Neurological: Positive: Alert Psychological: Positive: Age Appropriate Behavior Skin: Negative: Rashes Throat Pain/Nasal Course/Dx - Course Course Of Treatment: STREP TEST POSITIVE. PATIENT STATES SHE IS NOT GOOD AT TAKING MEDICATIONS SO WILL COVER WITH 1.2 MILLION UNITS BICILLIN LA INTRAMUSCULARLY. MAGIC MOUTHWASH ALSO PROVIDED TO HELP WITH SYMPTOM RELIEF. ENCOURAGED HYDRATION. FOLLOW-UP IF NEEDED. - Differential Dx/Diagnosis Provider Diagnosis: Strep tonsillitis Discharge ED - Sign-Out/Discharge Documenting (check all that apply): Patient Departure All imaging exams completed and their final reports reviewed: No Studies - Discharge Plan Condition: Stable Disposition: HOME Prescriptions: Magic Mouth Was-LEYLA/MAAL/LIDO* 5 - 10 ml SWISH SWAL QID PRN #150 ml PRN Reason: Sore Throat Patient Education Materials: Strep Throat (ED) Referrals: [facility] [Provider Group] Lucille Dooley PA [Primary Care Provider] - If Needed Additional Instructions: STREP POSITIVE. YOU RECEIVED 1.2 MILLION UNITS OF BICILLIN LA INTRAMUSCULARLY. THIS IS ADEQUATE TREATMENT. OTC CHLORASEPTIC OR CEPACOL LOZENGES AND/OR IBUPROFEN FOR SORE THROAT NEEDED MAGIC MOUTHWASH ALSO PRESCRIBED. ONCE SYMPTOMS RESOLVED - NEW TOOTHBRUSH DO NOT SHARE FOOD, DRINK, UTENSILS GIVEN YOUR CHRONICALLY ENLARGED TONSILS AND RECURRENT INFECTIONS YOU MAY BENEFIT FROM ENT EVALUATION TO SEE IF YOU ARE A CANDIDATE FOR TONSILLECTOMY. - Billing Disposition and Condition Condition: STABLE Disposition: Home
== END 2019-09-08 14:45 | disposition home or self-care (01) ==
LOC: UCEAST 13:02
DX: J03.00 Acute streptococcal tonsillitis, unspecified (principal); J45.909 Unspecified asthma, uncomplicated; Z87.891 Personal history of nicotine dependence; Z85.41 Personal history of malignant neoplasm of cervix uteri
CPT/HCPCS: 87651; 96372; 99212; G0463; J0558